=== PATIENT | female | born 1940 | race Caucasian/White ===

== ENCOUNTER 2020-08-03 14:09 | Outpatient (REF) | payer MEDICARE, SELFPAY ==
--- NOTE | 2020-08-03 14:00 | MR_ITS ---
EXAMINATION: MRI BRAIN WITHOUT CONTRAST CLINICAL INFORMATION: Cognitive change. COMPARISON: CT brain 05/23/2010. TECHNIQUE: Multisequential and multiprojectional images of MRI brain were obtained without contrast. FINDINGS: There is no restricted diffusion seen to suspect any acute infarction changes. No flow void or ferromagnetic artifact seen to suspect any acute or residual changes of old hemorrhage or hemosiderin. There are areas of hyperintensity along the deep periventricular white matter of both posterior parietal lobes and minimal in the frontal lobes, likely chronic small vessel ischemic changes. There is no atrophy or mass effect. The lateral ventricles are symmetrical but enlarged with mild prominence of cortical sulci. There is normal flow void signal seen in the major cerebral vasculature. There are well-aerated bilateral paranasal sinuses and mastoid sinuses. Visualized craniovertebral junction and craniocaudal axis including the posterior fossa structures are unremarkable. MR/MR head/brain wo con IMPRESSION: No acute intracranial process seen. Periventricular T2 hyperintensity, likely chronic small vessel ischemic changes with age-related cerebral volume loss.
== END 2020-08-03 14:10 | disposition home or self-care (01) ==
LOC: HO.MRI 14:09
PROVIDERS: PCP Nurse Practitioner Family; Visit Provider Internal Medicine
DX: R41.89 Other symptoms and signs involving cognitive functions and awareness (principal)
CPT/HCPCS: 70551

== ENCOUNTER 2022-08-05 11:15 | Inpatient (IN) | payer MEDICARE, SELFPAY ==
--- NOTE | ~2022-08-05 | CT_ITS ---
EXAMINATION: CT ABDOMEN AND PELVIS WITHOUT CONTRAST CLINICAL INFORMATION: Diarrhea. COMPARISON: None TECHNIQUE: Multidetector volumetric imaging was performed from the superior aspect of the liver through the pubic symphysis. Sagittal and coronal reformatted images were obtained on the technologist's workstation. This CT examination was performed using dose optimization techniques as appropriate, variously including the following: *Automated exposure control *Adjustment of mA and/or kV according to patient size (this includes techniques or standardized protocols for targeted exams where dose is matched to indication/reason for exam; i.e. extremities or head) *Use of iterative reconstruction technique DLP: 551 mGy-cm FINDINGS: LUNG BASES: Atherosclerotic calcification of left anterior descending coronary artery and of partially visualized thoracic aorta. No pericardial or pleural effusion. There are subpleural reticular opacities of mild fibrosis in the visualized bases. LIVER: The liver has normal size, shape, and attenuation. No evidence of liver mass. GALLBLADDER AND BILIARY TREE: Cholecystectomy. The central intrahepatic ducts are mildly dilated and common duct measures up to approximately 2 cm diameter. No stones are identified within the dilated duct. PANCREAS: Normal. No edema, pancreatic ductal dilatation or mass. SPLEEN: Normal. ADRENAL GLANDS: Normal. KIDNEYS AND URETERS: The kidneys have normal size and cortical thickness. No perinephric edema or fluid collection. No urolithiasis or hydroureteronephrosis. BLADDER: Urinary bladder is well distended and has normal wall thickness. BOWEL AND PERITONEUM: There appears to be a very small hiatal hernia of the stomach. Alternatively, the finding in question might represent mild gaseous distention of the esophageal vestibule. Small bowel is unremarkable. The appendix is normal. The wall of the colon appears to be minimally thickened. The mild haziness of some of the pericolonic fat elevates suspicion for presence of mild colitis. There are diverticula of the sigmoid colon. However, there is no evidence of any inflammation localized to a diverticulum. No abdominal free air or abscess. A trace amount of free fluid is present along paracolic gutters. ABDOMINAL WALL: Unremarkable. VASCULATURE: There is moderate atherosclerotic disease of the abdominal aorta without aneurysm. LYMPH NODES: No pathologic sized lymph nodes in the abdomen or pelvis. No inguinal lymphadenopathy. PELVIC VISCERA: Hysterectomy. No adnexal mass. Small amount of simple appearing free fluid is present in the pelvis. SKELETAL: Chondrocalcinosis of pubic symphysis, hips and spine. Rotatory levoscoliosis of the thoracolumbar spine. The disc degeneration of the lumbar spine is worst at L3-L4 and L5-S1. Minimal retrolisthesis at L2-L3, L3-L4 and L5-S1, and grade 1 anterolisthesis at L4-L5. L5 vertebral body hemangioma. No suspicious bone lesion. CT/CT abdomen pelvis wo IV con IMPRESSION: * There appears to be minimal wall thickening of the right and left colon and, in some areas of the abdomen, mild haziness of pericolonic fat is observed. These findings suggest likelihood of mild colitis. * Diverticula of the sigmoid colon without overt diverticulitis. * Small amount of free fluid is present in the abdomen/pelvis. No abscess or free air. * Cholecystectomy and dilated common bile duct. The chronicity of the common duct dilatation is uncertain given absence of comparison imaging exams. Consider correlation with bilirubin levels and liver function tests. * Mild interstitial fibrosis in the periphery of the visualized lung bases.
[2022-08-05 11:29] VITALS: BP 123/59; PULSE 86; RESP 18; TEMP 36.6; O2SAT 97; BMI 27.4
--- NOTE | 2022-08-05 11:47 | ED.WEAKNESS ---
HPI - Weakness General Chief complaint: Weakness Stated complaint: WEAKNESS DIARRHEA Time Seen by Provider: 08/05/22 11:33 Source: patient and EMS Mode of arrival: EMS Limitations: no limitations History of Present Illness HPI Narrative: 82-year-old female came in for evaluation of diarrhea. Patient overall is a poor historian and history was obtained from EMS who obtained the history from the caregiver at home, patient has been having diarrhea for a week with generalized weakness and decrease activity. Related Data Home Medications Medication Instructions Recorded Confirmed amlodipine 5 mg tablet 1 tab PO DAILY 08/05/22 08/05/22 bupropion HCl 100 mg tablet,12 hr 1 tab PO QAM 08/05/22 08/05/22 sustained-release cholecalciferol (vitamin D3) 25 25 mcg PO DAILY 08/05/22 08/05/22 mcg (1,000 unit) capsule (Vitamin D3) lisinopril 10 mg tablet 1 tab PO DAILY 08/05/22 08/05/22 pravastatin 10 mg tablet 1 tab PO BEDTIME 08/05/22 08/05/22 quetiapine 25 mg tablet 1 tab PO BID 08/05/22 08/05/22 sertraline 100 mg tablet 175 mg PO DAILY 08/05/22 08/05/22 trospium 20 mg tablet 1 tab PO BID 08/05/22 08/05/22 Allergies Allergy/AdvReac Type Severity Reaction Status Date / Time amoxicillin [AMOXICILLIN] Allergy Unknown UNKNOWN Unverified 06/22/20 15:02 shellfish derived AdvReac Unknown PT JUST Unverified 06/22/20 15:02 [SHELLFISH DERIVED] AVOIDS SHELLFISH Review of Systems Review of Systems: All other systems are reviewed and are negative Constitutional: Reports as per HPI and Reports no additional constitutional complaints Eyes: Reports as per HPI and Reports no additional eye complaints Reports system reviewed and no additional complaints, except as documented Cardiovascular: Reports as per HPI and Reports no additional cardiovascular complaints Respiratory: Reports as per HPI and Reports no additional respiratory complaints Gastrointestinal: Reports as per HPI and Reports no additional gastrointestinal complaints Genitourinary: Reports no additional female genitourinary complaints Musculoskeletal: Reports no additional musculoskeletal complaints Skin/Breast: Reports system reviewed and no additional complaints, except as docu Psychiatric: Reports no additional psychiatric complaints Endocrine: Reports no additional endocrine complaints Hematologic/Lymphatic: Reports no additional hematologic/lymphatic complaints Allergic/Immunologic: Reports no additional allergic/immunologic complaints Reports system reviewed and no additional complaints, except as documented and Reports Abnormal speech present [facility] [place] Social History Social History Advance Directives: Yes Advance Directives on File: Yes Advance Directives Date on File: 08/05/22 Physical Exam Vital Signs: Vital Signs: Last Vital Signs Temp 97.9 F 08/05/22 11:29 Pulse 86 08/05/22 11:29 Resp 18 08/05/22 11:29 BP 123/59 L 08/05/22 11:29 Pulse Ox 97 08/05/22 11:29 O2 Del Method 08/05/22 11:29 BMI result Body Mass Index 27.4 Vital signs have been reviewed as appeared to be correct. Blood pressure normal. Heart rate normal. Respiration rate normal. Temperature normal. Oxygen saturation normal. Appearance: Alert. Oriented X3. No acute distress. Head: Normal external exam. Normocephalic. Atraumatic. No Kumari signs noted. No raccoon eyes noted Eyes: PERRLA. EOMI. Conjunctiva and sclera normal. Eyelids normal. ENT: TM's Normal. Pharynx normal. Uvula midline. Moist mucous membranes. No trismus noted. No drooling noted. No muffled voice noted. Neck: Normal inspection. Neck supple. FROM. No adenopathy. Thyroid Normal. No meningeal signs. No neck mass noted. CVS: Normal heart rate and rhythm. Heart sound normal. No murmurs noted. Pulses normal throughout. Respiratory: No respiratory distress. Painless inspiration. Breath sounds normal. No wheezes/rales/rhonchi noted. Chest nontender. No accessory muscle usage noted or decreased air movement noted. Abdomen: Soft and nontender. Bowel sounds normal in all 4 quadrants. No distention noted. No organomegaly noted. No visible injury noted. Back: No CVA tenderness. Full range of motion noted. Skin: Skin warm and dry. Normal skin color. Normal skin turgor. No rashes/lesions/lacerations noted. Extremities: No lower extremity edema. Extremities exhibit normal range of motion. Extremities nontender. Neuro: Oriented X 3. Cranial nerve exam: II-XII are grossly intact No motor deficit. No sensory deficit. Reflexes normal. Course Reevaluation(s) Reevaluation #1: More history was obtained from the caregiver (Aurora Hernandez) patient is demented and poor historian at baseline patient had a history of multiple UTI in the past few months received multiple antibiotic courses, patient has been declining and deconditioning over the past few months, patient lost close to 30 lb over 9 months unintentionally, patient had multiple falls over the past 3 months, patient lives home mostly by herself get few hours help from a caregiver Friday - Friday, sons and daughter come visit her few hours a week. Time: 12:11 Reevaluation #2: 82-year-old female with nonstop diarrhea for 1 week will treat empirically for C diff with p.o. vancomycin until stool sample is available for testing. Hypokalemia was replaced p.o. and IV in the ED. Admit for hydration. Time: 13:44 MDM - Weakness Lab Data Attestation: I reviewed the patient's lab results. Result diagrams: 08/05/22 12:16 08/05/22 12:16 Labs: Lab Results 08/05/22 08/05/22 08/05/22 Range/Units 12:16 12:16 12:16 WBC 29.8 H (4.8-10.8) X10*3/uL RBC 3.75 L (4.20-5.50) X10*6/uL Hgb 12.1 (12.0-16.0) g/dl Hct 34.8 L (37.0-47.0) % MCV 92.8 (80.0-98.0) fL MCH 32.3 (27.0-33.0) pg MCHC 34.8 (31.0-35.0) g/dl RDW 12.9 (11.0-16.0) % Plt Count 283 (160-400) X10*3/uL MPV 9.4 (9.4-12.3) fL Immature Gran % (Auto) 0.9 H (0.0-0.4) % Neut % (Auto) 89.5 H (45-73) % Lymph % (Auto) 3.7 L (20-40) % Brantley % (Auto) 5.5 (2-11) % Eos % (Auto) 0.1 (0-4) % Baso % (Auto) 0.3 (0-2) % Lymph # (Auto) 1.1 L (1.2-4.9) X10*3/uL Brantley # (Auto) 1.7 H (0.1-1.2) X10*3/uL Eos # (Auto) 0.0 (0.0-0.4) X10*3/uL Baso # (Auto) 0.1 (0.0-0.2) X10*3/uL Abs Immat Gran (auto) 0.28 H (0.00-0.03) X10*3/uL Absolute Neuts (auto) 26.6 H (2.0-8.3) x10*3/uL Absolute Nucleated RBC 0.000 (0.0-0.012) X10*3/uL Nucleated RBC % (auto) 0.0 (0.0-0.2) /100WBC Smear Tech's Comments VERIFIED Sodium 138 (135-145) mmol/L Potassium 2.9 L (3.3-5.1) mmol/L Chloride 97 (96-108) mmol/L Carbon Dioxide 23 (22-29) mmol/L Anion Gap 21 H (12-20) BUN 25 H (9-16) mg/dL Creatinine 0.78 (0.5-1.4) mg/dL Estim Creat Clear Calc 57.3 Estimated GFR > 60 Random Glucose 124 H (60-115) mg/dL Lactic Acid 0.7 (0.5-2.0) mmol/L Calcium 8.8 (8.4-10.2) mg/dL Total Bilirubin 0.9 (0.0-1.0) mg/dL Direct Bilirubin 0.5 (0.0-0.5) mg/dL AST 19 (5-31) U/L ALT 12 (0-31) U/L Alkaline Phosphatase 64 (39-117) U/L Troponin I High Sens (<3.5-17.0) ng/L B-Natriuretic Peptide (<100) pg/mL Total Protein 5.8 L (6.5-8.0) g/dL Albumin 3.4 L (3.5-5.0) g/dL Lipase 6 L (8-78) U/L COVID-19 (SHIRA) (Negative) COVID-19 Clin Com 08/05/22 08/05/22 Range/Units 12:16 12:16 WBC (4.8-10.8) X10*3/uL RBC (4.20-5.50) X10*6/uL Hgb (12.0-16.0) g/dl Hct (37.0-47.0) % MCV (80.0-98.0) fL MCH (27.0-33.0) pg MCHC (31.0-35.0) g/dl RDW (11.0-16.0) % Plt Count (160-400) X10*3/uL MPV (9.4-12.3) fL Immature Gran % (Auto) (0.0-0.4) % Neut % (Auto) (45-73) % Lymph % (Auto) (20-40) % Brantley % (Auto) (2-11) % Eos % (Auto) (0-4) % Baso % (Auto) (0-2) % Lymph # (Auto) (1.2-4.9) X10*3/uL Brantley # (Auto) (0.1-1.2) X10*3/uL Eos # (Auto) (0.0-0.4) X10*3/uL Baso # (Auto) (0.0-0.2) X10*3/uL Abs Immat Gran (auto) (0.00-0.03) X10*3/uL Absolute Neuts (auto) (2.0-8.3) x10*3/uL Absolute Nucleated RBC (0.0-0.012) X10*3/uL Nucleated RBC % (auto) (0.0-0.2) /100WBC Smear Tech's Comments Sodium (135-145) mmol/L Potassium (3.3-5.1) mmol/L Chloride (96-108) mmol/L Carbon Dioxide (22-29) mmol/L Anion Gap (12-20) BUN (9-16) mg/dL Creatinine (0.5-1.4) mg/dL Estim Creat Clear Calc Estimated GFR Random Glucose (60-115) mg/dL Lactic Acid (0.5-2.0) mmol/L Calcium (8.4-10.2) mg/dL Total Bilirubin (0.0-1.0) mg/dL Direct Bilirubin (0.0-0.5) mg/dL AST (5-31) U/L ALT (0-31) U/L Alkaline Phosphatase (39-117) U/L Troponin I High Sens 6.8 (<3.5-17.0) ng/L B-Natriuretic Peptide 89 (<100) pg/mL Total Protein (6.5-8.0) g/dL Albumin (3.5-5.0) g/dL Lipase (8-78) U/L COVID-19 (SHIRA) Negative (Negative) COVID-19 Clin Com See Note Imaging Data CT scan - abdomen: Attestation: I personally reviewed and interpreted this imaging study as follows: Radiologist's impression: *? There appears to be minimal wall thickening of the right and left colon and, in some areas of the abdomen, mild haziness of pericolonic fat is observed. These findings suggest likelihood of mild colitis. *? Diverticula of the sigmoid colon without overt diverticulitis. *? Small amount of free fluid is present in the abdomen/pelvis. No abscess or free air. *? Cholecystectomy and dilated common bile duct. The chronicity of the common duct dilatation is uncertain given absence of comparison imaging exams. Consider correlation with bilirubin levels and liver function tests. *? Mild interstitial fibrosis in the periphery of the visualized lung bases. ? ? Discharge Plan Discharge Clinical Impression: Dehydration, Acute hypokalemia, C. difficile diarrhea, Failure to thrive, Leukocytosis Patient Disposition: Still a Patient Prescriptions: No Action sertraline 100 mg tablet 175 mg PO DAILY amlodipine 5 mg tablet 1 tab PO DAILY bupropion HCl 100 mg tablet sustained-release 12 hr 1 tab PO QAM trospium 20 mg tablet 1 tab PO BID quetiapine 25 mg tablet 1 tab PO BID pravastatin 10 mg tablet 1 tab PO BEDTIME lisinopril 10 mg tablet 1 tab PO DAILY cholecalciferol (vitamin D3) [Vitamin D3] 25 mcg (1,000 unit) Capsule 25 mcg PO DAILY
[2022-08-05 12:24] LABS: Basophils Absolute Auto 0.1 X10*3/uL (0.0-0.2); Basophils Percent Auto 0.3 % (0-2); Eosinophils Percent Auto 0.1 % (0-4); Hematocrit 34.8 % (37.0-47.0); Hemoglobin 12.1 g/dl (12.0-16.0); Imm Gran Abs Auto 0.28 X10*3/uL (0.00-0.03); Imm Gran Pct Auto 0.9 % (0.0-0.4); Lymphocytes Absolute Auto 1.1 X10*3/uL (1.2-4.9); Lymphocytes Percent Auto 3.7 % (20-40); MANUAL DIFF FLAG SCAN; Mean Corpuscular HGB Conc 34.8 g/dl (31.0-35.0); Mean Corpuscular Hemoglobin 32.3 pg (27.0-33.0); Mean Corpuscular Volume 92.8 fL (80.0-98.0); Mean Platelet Volume 9.4 fL (9.4-12.3); Monocytes Absolute Auto 1.7 X10*3/uL (0.1-1.2); Monocytes Percent Auto 5.5 % (2-11); Neutrophils Absolute Auto 26.6 x10*3/uL (2.0-8.3); Neutrophils Percent Auto 89.5 % (45-73); Platelet Count 283 X10*3/uL (160-400); Red Blood Count 3.75 X10*6/uL (4.20-5.50); Red Cell Distribution Width 12.9 % (11.0-16.0); SCAN SMEAR FLAG 1; White Blood Count 29.8 X10*3/uL (4.8-10.8)
[2022-08-05 12:37] LABS: COVID-19 Test Negative (Negative); IDNOW Serial# 16C4AD1C
[2022-08-05 12:46] LABS: Lactic Acid 0.7 mmol/L (0.5-2.0)
[2022-08-05] MEDS: 0.9 % Sodium Chloride 1,000 ML 999 ML IV (12:50)
[2022-08-05] MEDS: vancomycin HCL 125 MG CAPSULE PO ×2 (12:50→20:27)
[2022-08-05] MEDS: Loperamide HCl 2 MG CAPSULE PO (12:50)
[2022-08-05 12:53] LABS: Alanine Aminotransferase 12 U/L (0-31); Albumin Level 3.4 g/dL (3.5-5.0); Alkaline Phosphatase 64 U/L (39-117); Anion Gap 21 (12-20); Aspartate Amino Transferase 19 U/L (5-31); Bilirubin Direct 0.5 mg/dL (0.0-0.5); Bilirubin Total 0.9 mg/dL (0.0-1.0); Blood Urea Nitrogen 25 mg/dL (9-16); Calcium 8.8 mg/dL (8.4-10.2); Carbon Dioxide 23 mmol/L (22-29); Chloride 97 mmol/L (96-108); Creatinine Clr Calc Pharmacy 57.3; Estimated Glomerular Filt Rate > 60; Glucose Random 124 mg/dL (60-115); Lipase 6 U/L (8-78); Potassium 2.9 mmol/L (3.3-5.1); Sodium 138 mmol/L (135-145); Total Protein 5.8 g/dL (6.5-8.0)
[2022-08-05 12:58] LABS: B Type Natriuretic Peptide 89 pg/mL (<100); Troponin-I High Sensitivity 6.8 ng/L (<3.5-17.0)
[2022-08-05 13:06] LABS: SLIDE REVIEW VERIFIED
--- NOTE | 2022-08-05 14:16 | PHA.MEDREC ---
Pharmacy Consult ? Medication Reconciliation Pharmacy has completed the medication reconciliation. Patient's son had list of medications. Will bring in trospium if patient is staying. Kelli Caballero, BjornD
[2022-08-05] MEDS: Potassium Chloride Packet 20 MEQ PACKET 40 MEQ PO (14:43)
[2022-08-05] MEDS: Potassium Chloride/H20 10 MEQ/100 ML PIGGYBACK 100 MEQ IV (14:43)
--- NOTE | 2022-08-05 15:54 | P.HPHOSP_ITS ---
History of Present Illness Date of Service: 08/05/22 Attending physician on admission: Trent Vasquez Chief Complaint: Diarrhea/weakness 82-year-old female patient with past medical history significant for Alzheimer's dementia, hypertension, hyperlipidemia was brought into [facility] ac companied by patient's son due to symptoms of diarrhea of 1 week duration associated with generalized weakness, no nausea, no vomiting, mild mid abdominal discomfort and recurrent fall according to son patient has been treated more than 4 times UTI this year just finished course of antibiotic 1 week ago and developed loose stools multiple episodes in 1 day, and has been noticed to be shaky while ambulating with walker has had multiple falls at home, patient and sent denies fever chills, rigors, no head injuries, no headache, no dizziness patient lives alone at home with care provider few hours per day and son and daughter takes turned to check on her in the afternoon but since things were ge tting worse with gradual weight loss, weakness for therefore family decided to bring her to the hospital in the emergency room patient noted to have leukocytosis, hypokalemia stable vitals COVID test is negative CT abdomen and pelvis showed minimal wall thickening of the right and left Colon, mild haziness of the pericolonic fat, suggestive of mild colitis, diverticular of the sigmoid colon without diverticulitis small free fluid was noted in the abdomen/pelvis no abscess or free in noted, mild interstitial fibrosis noted in the periphery of the visualizing lung, patient is status post cholecystectomy, mild CBD dilatation notice but patient has normal LFTs patient is now being admitted to [facility] with diagnosis of colitis likely C diff /and also for generalized weakness recurrent falls. 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 no dizziness CVS no chest pain, no palpitation Respiratory no cough, no shortness of breath no urgency no frequency Skin no rash Yes all other systems are reviewed and are negative PMFSH Social History Advance Directives: Yes Advance Directives on File: Yes Advance Directives Date on File: 08/05/22 Meds Allergies Allergy/AdvReac Type Severity Reaction Status Date / Time amoxicillin [AMOXICILLIN] Allergy Unknown UNKNOWN Unverified 06/22/20 15:02 shellfish derived AdvReac Unknown PT JUST Unverified 06/22/20 15:02 [SHELLFISH DERIVED] AVOIDS SHELLFISH Active Medications: Current Medications Amlodipine Besylate (Amlodipine Besylate 5 Mg Tablet) 5 mg PO DAILY [facility]; Protocol Non-Formulary Medication (Bupropion Hcl) 1 tab PO QAM [facility] Non-Formulary Medication (Trospium) 1 tab PO BID [facility] Pharmacy Consult (Consult Rx Perform Med Rec) 1 each MISCELLANE ONCE PRN PRN Reason: Consult order Pravastatin Sodium (Pravastatin Sodium 10 Mg Tablet) 10 mg PO BEDTIME [facility] Quetiapine Fumarate (Quetiapine Fumarate 25 Mg Tablet) 25 mg PO BID [facility] Sertraline HCl (Sertraline Hcl 25 Mg Tablet) 175 mg PO DAILY [facility] Vitamin D (Cholecalciferol (Vitamin D3) 25 Mcg Tablet) 25 mcg PO DAILY [facility] Home Medications Medication Instructions Recorded Confirmed Last Taken Type amlodipine 5 mg tablet 1 tab PO DAILY 08/05/22 08/05/22 08/04/22 History bupropion HCl 100 mg tablet,12 hr 1 tab PO QAM 08/05/22 08/05/22 08/04/22 History sustained-release cholecalciferol (vitamin D3) 25 25 mcg PO DAILY 08/05/22 08/05/22 08/04/22 History mcg (1,000 unit) capsule (Vitamin D3) lisinopril 10 mg tablet 1 tab PO DAILY 08/05/22 08/05/22 08/04/22 History pravastatin 10 mg tablet 1 tab PO BEDTIME 08/05/22 08/05/22 08/04/22 History quetiapine 25 mg tablet 1 tab PO BID 08/05/22 08/05/22 08/04/22 History sertraline 100 mg tablet 175 mg PO DAILY 08/05/22 08/05/22 08/04/22 History trospium 20 mg tablet 1 tab PO BID 08/05/22 08/05/22 08/04/22 History Physical Exam Vital Signs and Narrative: Vital Signs: Last Vital Signs Temp 97.9 F 08/05/22 11:29 Pulse 86 08/05/22 11:29 Resp 18 08/05/22 11:29 BP 123/59 L 08/05/22 11:29 Pulse Ox 97 08/05/22 11:29 O2 Del Method 08/05/22 11:29 BMI result Body Mass Index 27.4 Const: Other: General awake alert to person, not aware of place, resting comfortably in no acute distress. Anicteric sclera Neck supple no JVD. CVS regular rate rhythm, Respiratory lungs clear to auscultation, no respiratory distress, no wheeze, no rhonchi. Gastrointestinal abdomen soft, nondistended, mild mid abdominal discomfort with deep palpation, bowel sounds audible, no guarding , no rigidity. Extremities no edema. Neuro nonfocal , moving all 4 extremity speech clear. Skin no rash Back no CVA tenderness Results Labs CBC and Chem 7: 08/05/22 12:16 08/05/22 12:16 Labs: Laboratory Results - last 24 hr 08/05/22 08/05/22 08/05/22 12:16 12:16 12:16 MCV 92.8 MCH 32.3 MCHC 34.8 RDW 12.9 Plt Count 283 MPV 9.4 Immature Gran % (Auto) 0.9 H Neut % (Auto) 89.5 H Lymph % (Auto) 3.7 L Hawkins % (Auto) 5.5 Eos % (Auto) 0.1 Baso % (Auto) 0.3 Lymph # (Auto) 1.1 L Hawkins # (Auto) 1.7 H Eos # (Auto) 0.0 Baso # (Auto) 0.1 Abs Immat Gran (auto) 0.28 H Absolute Neuts (auto) 26.6 H Absolute Nucleated RBC 0.000 Nucleated RBC % (auto) 0.0 Smear Tech's Comments VERIFIED Anion Gap 21 H Estim Creat Clear Calc 57.3 Estimated GFR > 60 Random Glucose 124 H Lactic Acid 0.7 Calcium 8.8 Total Bilirubin 0.9 Direct Bilirubin 0.5 AST 19 ALT 12 Alkaline Phosphatase 64 Troponin I High Sens B-Natriuretic Peptide Total Protein 5.8 L Albumin 3.4 L Lipase 6 L COVID-19 ([facility]IRA) COVID-19 Clin Com 08/05/22 08/05/22 12:16 12:16 MCV MCH MCHC RDW Plt Count MPV Immature Gran % (Auto) Neut % (Auto) Lymph % (Auto) Hawkins % (Auto) Eos % (Auto) Baso % (Auto) Lymph # (Auto) Hawkins # (Auto) Eos # (Auto) Baso # (Auto) Abs Immat Gran (auto) Absolute Neuts (auto) Absolute Nucleated RBC Nucleated RBC % (auto) Smear Tech's Comments Anion Gap Estim Creat Clear Calc Estimated GFR Random Glucose Lactic Acid Calcium Total Bilirubin Direct Bilirubin AST ALT Alkaline Phosphatase Troponin I High Sens 6.8 B-Natriuretic Peptide 89 Total Protein Albumin Lipase COVID-19 (SHIRA) Negative COVID-19 Clin Com See Note Imaging Radiologist's Impressions: Impressions Abdomen/Pelvis CT 08/05/22 12:10 IMPRESSION: * There appears to be minimal wall thickening of the right and left colon and, in some areas of the abdomen, mild haziness of pericolonic fat is observed. These findings suggest likelihood of mild colitis. * Diverticula of the sigmoid colon without overt diverticulitis. * Small amount of free fluid is present in the abdomen/pelvis. No abscess or free air. * Cholecystectomy and dilated common bile duct. The chronicity of the common duct dilatation is uncertain given absence of comparison imaging exams. Consider correlation with bilirubin levels and liver function tests. * Mild interstitial fibrosis in the periphery of the visualized lung bases. Assessment and Plan (1) Acute hypokalemia: Status: Acute (2) C. difficile diarrhea: Status: Acute (3) Failure to thrive: Status: Acute (4) Leukocytosis: Status: Acute (5) Dehydration: Status: Acute Plan 82-year-old female patient with past medical history of Alzheimer's dementia, hypertension, hyperlipidemia brought into [facility] due to diarrhea, generalized weakness and recurrent falls diagnosed with hypokalemia leukocytosis and mild colitis on CT abdomen and positive urinalysis. Acute Diarrhea Significant Leukocytosis/CT abdomen suggestive of mild colitis likely has C diff colitis with recent use of antibiotics Follow C diff toxin continue by mouth vancomycin Will place on caffeine free/lactose-free low fiber diet Follow clinical course Generalized weakness/recurrent falls/failure to thrive Likely due to diarrhea/recurrent uti Patient ambulates at home with wheeled walker will obtain PT eval Hypokalemia likely due to diarrhea will replete and follow BMP Positive urinalysis will check urine cultures at present asymptomatic recently finished course of antibiotics question colonization Hypertension continue Norvasc hold lisinopril follow blood pressure closely Alzheimer's dementia continue home medications no behavioral issues noted on admission DVT prophylaxis with subQ Lovenox Code status DNR DNI as per patient's son Raymond Harris who is healthcare proxy In my clinical judgment patient will need 2 night inpatient hospitalization due to acute C diff colitis with profuse diarrhea requiring antibiotics IV fluids, need to follow up on blood and urine cultures for Quality Stroke Does the patient have a stroke diagnosis?: No VTE Prior VTE?: No VTE Risk Level:: Medical - moderate - high VTE Device Contraindication: Treatment Not Indicated VTE Drug Contraindication: N/A - Med Ordered
[2022-08-05] MEDS: KCl 20 mEq in 5 % Dex/Lact Rin 20 MEQ/1,000 ML IV.SOLN 80 MEQ IVCONT (17:53)
[2022-08-05 21:07] VITALS: BP 142/74; PULSE 86; RESP 16; TEMP 36.9; O2SAT 98
--- NOTE | 2022-08-05 21:08 | PC.NURSE ---
this pct assumed care of pt at 2100 ,pt got ,over into hospital bed ,vs taken bed alarm on fresh pitcher water given tissue box and small garbage bag on bedside table ,pt watching television pt daughter just leave .
[2022-08-05] MEDS: QUEtiapine Fumarate 25 MG TABLET PO (22:06)
[2022-08-05] MEDS: Pravastatin Sodium 10 MG TABLET PO (22:06)
[2022-08-05 23:43] VITALS: BP 129/58; PULSE 90; RESP 16; TEMP 36.3; O2SAT 97
--- NOTE | 2022-08-05 23:44 | PC.NURSE ---
pt was inc of urine ,aleyda care given bedding change.
[2022-08-06] MEDS: 0.9 % Sodium Chloride Flush 3 ML SYRINGE IVFLUSH ×3 (01:23→20:57)
--- NOTE | 2022-08-06 01:30 | PC.NURSE ---
assistant housekeeping manager Ambrose reported to nurse patient was restless and pulled out her IV to L lower forearm. No bleeding noted. Bed slightly saturated from running IV fluids and paused. Patient received aleyda care r/t patient was incontinent of urine and stool smear. New IV site started to L AC 20 G patent. Potassium IV fluids running. Pt resting comfortably in supine position.
[2022-08-06] MEDS: vancomycin HCL 125 MG CAPSULE PO ×4 (02:40→23:54)
[2022-08-06 04:32] VITALS: BP 123/41; PULSE 68; RESP 18; TEMP 37.4; O2SAT 97
[2022-08-06 04:56] LABS: Hemoglobin 10.5 g/dl (12.0-16.0); Mean Corpuscular Hemoglobin 32.9 pg (27.0-33.0); Mean Platelet Volume 9.2 fL (9.4-12.3); Platelet Count 242 X10*3/uL (160-400); Red Blood Count 3.19 X10*6/uL (4.20-5.50); Red Cell Distribution Width 12.8 % (11.0-16.0); White Blood Count 25.8 X10*3/uL (4.8-10.8)
[2022-08-06 05:16] LABS: Anion Gap 19 (12-20); Blood Urea Nitrogen 16 mg/dL (9-16); Calcium 8.2 mg/dL (8.4-10.2); Carbon Dioxide 22 mmol/L (22-29); Chloride 102 mmol/L (96-108); Creatinine Clr Calc Pharmacy 74.5; Estimated Glomerular Filt Rate > 60; Glucose Random 102 mg/dL (60-115); Potassium 3.1 mmol/L (3.3-5.1); Sodium 140 mmol/L (135-145)
--- NOTE | 2022-08-06 09:27 | MHC.CM.PN ---
Patient has a diagnosis of Alzheimer's Dementia; CM spoke with Daughter/Coreen @ [phone] and addressed IMM with her (original to be mailed certified letter to Coreen and a copy to be placed on the chart). STR is the family's goal and Patient will benefit from a PT eval([facility] is first choice snf).. CM has initiated and will follow for dc planning. Patient has received [employer]ur[employer] vax X 3 and her PCP is Dr. Deisy Gamboa.
[2022-08-06] MEDS: amLODIPine Besylate 5 MG TABLET PO (11:27)
[2022-08-06] MEDS: Cholecalciferol (Vitamin D3) 25 MCG TABLET PO (11:27)
[2022-08-06] MEDS: Sertraline HCL 50 MG TABLET 175 MG PO (11:27)
[2022-08-06] MEDS: QUEtiapine Fumarate 25 MG TABLET PO ×2 (11:28→20:56)
[2022-08-06] MEDS: buPROPion HCL 100 MG TABLET 50 MG PO ×2 (11:28→20:56)
[2022-08-06] MEDS: Potassium Chloride Packet 20 MEQ PACKET 40 MEQ PO (11:28)
--- NOTE | 2022-08-06 11:41 | P.PNIM_ITS ---
Subjective Subjective Date of Service: 08/06/22 Interval History: caregiver at bedside 4 recent falls at home; she is alone at night approx 2 wk of diarrhea had ABX for UTI in mid-Sep pt unable to give ROS due to dementia Physical Exam Vital Signs: Vital Signs: Last Vital Signs Temp 99.4 F 08/06/22 04:32 Pulse 68 08/06/22 04:32 Resp 18 08/06/22 04:32 BP 123/41 L 08/06/22 04:32 Pulse Ox 97 08/06/22 04:32 O2 Del Method 08/06/22 04:32 BMI result Body Mass Index 27.4 Gen: in no acute distress HEENT: sclera anicteric, moist mucus membranes Neck: supple Lungs: clear to auscultation bilaterally Heart: regular rate and rhythm, no murmurs Abd: soft, non-tender, non-distended Ext: no edema Skin: warm/well-perfused Neuro: alert, disoriented Psych: impaired insight Objective Data Active Medications Acetaminophen (Acetaminophen 325 Mg Tablet) 650 mg PO Q6H PRN PRN Reason: Pain, Mild (Pain Scale 1-3) Amlodipine Besylate (Amlodipine Besylate 5 Mg Tablet) 5 mg PO DAILY [facility]; Protocol Last Admin: 08/06/22 11:27 Dose: 5 mg Documented By: DREW Bupropion HCl (Bupropion Hcl 100 Mg Tablet) 50 mg PO BID [facility] Last Admin: 08/06/22 11:28 Dose: 50 mg Documented By: DREW Enoxaparin Sodium (Enoxaparin Sodium 40 Mg/0.4 Ml Syringe) 40 mg SUBCUT Q24H [facility] Last Admin: 08/05/22 17:54 Dose: Not Given Documented By: FLOWER Non-Admin Reason: Patient Refused Melatonin (Melatonin 3 Mg Tablet) 3 mg PO BEDTIME PRN PRN Reason: Insomnia Non-Formulary Medication (Trospium) 1 tab PO BID [facility] Ondansetron HCl (Ondansetron Hcl 4 Mg/2 Ml Vial) 4 mg IVPUSH Q8H PRN PRN Reason: Nausea and Vomiting Pharmacy Consult (Consult Rx Perform Med Rec) 1 each MISCELLANE ONCE PRN PRN Reason: Consult order Pravastatin Sodium (Pravastatin Sodium 10 Mg Tablet) 10 mg PO BEDTIME [facility] Last Admin: 08/05/22 22:06 Dose: 10 mg Documented By: BRETT Quetiapine Fumarate (Quetiapine Fumarate 25 Mg Tablet) 25 mg PO BID [facility] Last Admin: 08/06/22 11:28 Dose: 25 mg Documented By: DREW Sertraline HCl (Sertraline Hcl 50 Mg Tablet) 175 mg PO DAILY [facility] Last Admin: 08/06/22 11:27 Dose: 175 mg Documented By: DREW Sodium Chloride (0.9 % Sodium Chloride Flush 3 Ml Syringe) 3 ml IVFLUSH QSHIFT [facility] Last Admin: 08/06/22 09:13 Dose: Not Given Documented By: DREW Non-Admin Reason: See Note Vancomycin HCl (Vancomycin Hcl 125 Mg Capsule) 125 mg PO Q6H [facility] Last Admin: 08/06/22 11:27 Dose: 125 mg Documented By: DREW Vitamin D (Cholecalciferol (Vitamin D3) 25 Mcg Tablet) 25 mcg PO DAILY [facility] Last Admin: 08/06/22 11:27 Dose: 25 mcg Documented By: DREW Labs CBC & Chem 7: 08/06/22 04:42 08/06/22 04:42 Labs: Laboratory Results - last 24 hr 08/05/22 08/05/22 08/05/22 12:16 12:16 12:16 MCV 92.8 MCH 32.3 MCHC 34.8 RDW 12.9 Plt Count 283 MPV 9.4 Immature Gran % (Auto) 0.9 H Neut % (Auto) 89.5 H Lymph % (Auto) 3.7 L [place] % (Auto) 5.5 Eos % (Auto) 0.1 Baso % (Auto) 0.3 Lymph # (Auto) 1.1 L [place] # (Auto) 1.7 H Eos # (Auto) 0.0 Baso # (Auto) 0.1 Abs Immat Gran (auto) 0.28 H Absolute Neuts (auto) 26.6 H Absolute Nucleated RBC 0.000 Nucleated RBC % (auto) 0.0 Smear Tech's Comments VERIFIED Anion Gap 21 H Estim Creat Clear Calc 57.3 Estimated GFR > 60 Random Glucose 124 H Lactic Acid 0.7 Calcium 8.8 Total Bilirubin 0.9 Direct Bilirubin 0.5 AST 19 ALT 12 Alkaline Phosphatase 64 Troponin I High Sens B-Natriuretic Peptide Total Protein 5.8 L Albumin 3.4 L Lipase 6 L COVID-19 ([facility]) COVID-19 Clin Com 08/05/22 08/05/22 08/06/22 12:16 12:16 04:42 MCV 94.0 MCH 32.9 MCHC 35.0 RDW 12.8 Plt Count 242 MPV 9.2 L Immature Gran % (Auto) Neut % (Auto) Lymph % (Auto) [place] % (Auto) Eos % (Auto) Baso % (Auto) Lymph # (Auto) [place] # (Auto) Eos # (Auto) Baso # (Auto) Abs Immat Gran (auto) Absolute Neuts (auto) Absolute Nucleated RBC 0.000 Nucleated RBC % (auto) 0.0 Smear Tech's Comments Anion Gap Estim Creat Clear Calc Estimated GFR Random Glucose Lactic Acid Calcium Total Bilirubin Direct Bilirubin AST ALT Alkaline Phosphatase Troponin I High Sens 6.8 B-Natriuretic Peptide 89 Total Protein Albumin Lipase COVID-19 (SHIRA) Negative COVID-19 Clin Com See Note 08/06/22 04:42 MCV MCH MCHC RDW Plt Count MPV Immature Gran % (Auto) Neut % (Auto) Lymph % (Auto) [place] % (Auto) Eos % (Auto) Baso % (Auto) Lymph # (Auto) [place] # (Auto) Eos # (Auto) Baso # (Auto) Abs Immat Gran (auto) Absolute Neuts (auto) Absolute Nucleated RBC Nucleated RBC % (auto) Smear Tech's Comments Anion Gap 19 Estim Creat Clear Calc 74.5 Estimated GFR > 60 Random Glucose 102 Lactic Acid Calcium 8.2 L D Total Bilirubin Direct Bilirubin AST ALT Alkaline Phosphatase Troponin I High Sens B-Natriuretic Peptide Total Protein Albumin Lipase COVID-19 ([facility]IRA) COVID-19 Clin Com Assessment and Plan (1) Acute hypokalemia: Status: Acute Plan d#2 82yo F with Alzheimer's dementia, HTN, HLD brought in with weakness, recurrent falls, and worsening diarrhea found to have hypokalemia, leukocytosis, and colitis # acute colitis - high suspicion for C.diff- on vanco d#2 and awaiting stool study # hypoK - replete, recheck BMP in AM # recurrent falls # FTT - PT eval # HTN - continue amlodipine # dementia # mood disorder - continue sertraline, bupropion, quetiapine # VTE ppx: LMWH In my clinical judgment, the patient requires continued hospitalization for the following reasons: electrolyte abnormality, leukocytosis, colitis Quality Stroke Does the patient have a stroke diagnosis?: No VTE Prior VTE?: No VTE Risk Level:: Medical - moderate - high VTE Device Contraindication: Treatment Not Indicated VTE Drug Contraindication: N/A - Med Ordered
--- NOTE | 2022-08-06 11:43 | PC.NURSE ---
patient woke to verbal stimulus, caregiver from home at bedside who stated pt takes meds whole with water, this nurse attempted to give medication and pt was unable to swallow the pills ultimately spitting it out- caregiver stated this was new. this nurse crushed meds and put them in applesauce pt was able to swallow but had a delayed swallow. Dr. Franco was notified who stated he would order a speech swallow eval.
[2022-08-06 12:13] VITALS: BP 147/72; PULSE 90; RESP 14; TEMP 36.2; O2SAT 97
[2022-08-06 13:03] LABS: Magnesium 1.2 mg/dL (1.6-2.6)
[2022-08-06 13:15] VITALS: BP 147/72; PULSE 90; O2SAT 97
--- NOTE | 2022-08-06 13:56 | PC.NURSE ---
Dr. Franco notified via tiger text for mag level
[2022-08-06] MEDS: Magnesium Sulfate/H2O 2 GM/50 ML PIGGYBACK IV (14:30)
--- NOTE | 2022-08-06 14:42 | PC.NURSE ---
speech at bedside performing swallow eval
--- NOTE | 2022-08-06 14:53 | PC.NURSE ---
Mag started without incidence, could not chart at bedside as computer not working at the time. started at 1430pm. on the DEC it is greyed out and cannot manually chart on this patient.
[2022-08-06 17:08] VITALS: BP 120/69; PULSE 88; RESP 18; TEMP 36.6; O2SAT 96
[2022-08-06] MEDS: Enoxaparin Sodium 40 MG/0.4 ML SYRINGE SUBCUT (17:44)
--- NOTE | 2022-08-06 19:01 | MHC.SL.SWA ---
Speech Pathologist Impression: Risk of Aspiration Due to: Reduced Cognition Dysphasia Diet Status: Liquid Consistency and Strategies for Safe Swallow: Liquid Intake Recommendation: Thin Liquid Intake Strategies: Small Sips Solid Food Consistency: Dietary Recommendations: Chopped/Advanced (NDD3) Additional Modifications to Solid Foods: Pt will need periodic supervision, but able to feed self. Assure that patient is alternating liquids and solids, periodic oral check for pocketing of solid foods. All food should be in precut, bitesize pieces. Oral Medication Intake: Crushed with Puree Please contact the pharmacy regarding appropriate crushable or liquid drug formulations that are available whenever modified delivery is recommended. Compensatory Strategies and Precautions to be Taken for Safe Swallow: Sitting Upright (90 deg) Liquids from Cup Small Bites and Sips Alternate Liquids/Solids Rate of Ingestion Change Oral Check Avoid Specific Foods Supervision While Eating and Drinking for Safe Swallow: Intermittent Supervision Foods to Avoid: Avoid hard or tough difficult to chew solids, crunchy foods. Swallowing Recommended Treatments: Compens. Strategy Educat. Recommendation for Speech: Inpatient Speech Therapy Comment: Patient presents with mild oral phase dysphagia, with prolonged, disorganized mastication of solids and episodic pocketing of solid food. Recommend DOWNGRADE Diet to Chopped Advanced (NDD3), continue with THIN liquids, pills CRUSHED in puree. Pt can independently feed self, but will need at least periodic supervision to assure that patient is alternating sips of liquid with bites of solid food, and that patient is not orally pocketing solids. Recommendations communicating in person to nursing, by secure text to OTILIO MCGOVERN. POEM WRITER to f/u on toleration of diet 1-2X. Frequency/Duration: 1-2X while inpatient for toleration of diet. Date Range for Service Req: Timeline to reassess: Student Success Advisor Clinican/Clinical Fellow: No Supervisory Statement: I have reviewed and agree with the student/clinical fellow's documentation: N/A Speech Language Pathologist: Amy Padilla M.A., CCC-POEM WRITER
[2022-08-06 19:25] VITALS: BP 124/56; PULSE 90; RESP 18; TEMP 37.2; O2SAT 98
[2022-08-06] MEDS: Melatonin 3 MG TABLET PO (20:56)
[2022-08-06] MEDS: Pravastatin Sodium 10 MG TABLET PO (20:56)
[2022-08-06 23:48] VITALS: BP 140/70; PULSE 93; RESP 18; TEMP 36.3; O2SAT 97
[2022-08-07] VITALS (7 sets, daily range): BP systolic 113–141; BP diastolic 56–73; PULSE 75–100; RESP 16–20; TEMP 36.1–37.1; O2SAT 95–99
[2022-08-07 03:21] LABS: CDiff Gene PCR POSITIVE (Negative)
[2022-08-07 04:00] LABS: CDiff Toxin Positive (Negative)
[2022-08-07 04:01] LABS: CDIFF Internal ctrl Dots and bkg OK (V)
[2022-08-07] MEDS: vancomycin HCL 125 MG CAPSULE PO ×4 (06:35→23:08)
[2022-08-07 07:22] LABS: Anion Gap 18 (12-20); Blood Urea Nitrogen 16 mg/dL (9-16); Calcium 8.5 mg/dL (8.4-10.2); Carbon Dioxide 22 mmol/L (22-29); Chloride 103 mmol/L (96-108); Creatinine Clr Calc Pharmacy 74.5; Estimated Glomerular Filt Rate > 60; Glucose Random 146 mg/dL (60-115); Magnesium 1.8 mg/dL (1.6-2.6); Potassium 3.4 mmol/L (3.3-5.1); Sodium 140 mmol/L (135-145)
[2022-08-07] MEDS: Sertraline HCL 50 MG TABLET 175 MG PO (08:56)
[2022-08-07] MEDS: buPROPion HCL 100 MG TABLET 50 MG PO ×2 (08:57→19:44)
[2022-08-07] MEDS: QUEtiapine Fumarate 25 MG TABLET PO ×2 (08:57→19:44)
[2022-08-07] MEDS: Cholecalciferol (Vitamin D3) 25 MCG TABLET PO (08:57)
[2022-08-07] MEDS: amLODIPine Besylate 5 MG TABLET PO (08:57)
[2022-08-07] MEDS: 0.9 % Sodium Chloride Flush 3 ML SYRINGE IVFLUSH ×3 (09:01→19:44)
--- NOTE | 2022-08-07 10:26 | MHC.SL.SWA ---
Speech Pathologist Impression: Oropharyngeal dysphagia Risk of Aspiration Due to: Reduced Cognition Dysphasia Diet Status: Downgrade liquids Liquid Consistency and Strategies for Safe Swallow: Liquid Intake Recommendation: [place] Thick Liquid Intake Strategies: Small Sips No Straws Solid Food Consistency: Dietary Recommendations: Chopped/Advanced (NDD3) Additional Modifications to Solid Foods: Recommend continue with CHOPPED/ADVANCED (NDD3) solids and DOWNGRADE to [place]CT[place] THICK liquids, pills CRUSHED in PUREE. Continue with aspiration precautions and total supervision. Pt may require assistance with set up of tray and throughout meal. SYSTEM CONSULTANT will continue to follow. Oral Medication Intake: Crushed with Puree Please contact the pharmacy regarding appropriate crushable or liquid drug formulations that are available whenever modified delivery is recommended. Compensatory Strategies and Precautions to be Taken for Safe Swallow: Sitting Upright (90 deg) No Straw Small Bites and Sips Alternate Liquids/Solids Rate of Ingestion Change Supervision While Eating and Drinking for Safe Swallow: Total Supervision (1:1) Foods to Avoid: Avoid hard or tough difficult to chew solids, crunchy foods. Swallowing Recommended Treatments: Compens. Strategy Educat. Recommendation for Speech: Inpatient Speech Therapy Warehouse Person Clinican/Clinical Fellow: Yes: Sofiya Pack Supervisory Statement: I have reviewed and agree with the student/clinical fellow's documentation: N/A Speech Language Pathologist: Chayito Rain M.A., CCC-SYSTEM CONSULTANT
--- NOTE | 2022-08-07 11:34 | HO.PM.IMPN ---
Subjective Subjective Date of Service: 08/07/22 Interval History: 3 episodes of diarrhea this morning eating; denies N/V no abd pain Review of Systems Review of Systems: Yes all other systems are reviewed and are negative Physical Exam Vital Signs: Vital Signs: Last Vital Signs Temp 97.0 F 08/07/22 11:26 Pulse 100 08/07/22 11:26 Resp 16 08/07/22 11:26 BP 113/56 L 08/07/22 11:26 Pulse Ox 97 08/07/22 11:26 O2 Del Method 08/07/22 11:26 BMI result Body Mass Index 27.4 Gen: in no acute distress HEENT: sclera anicteric, moist mucus membranes Neck: supple Lungs: clear to auscultation bilaterally Heart: regular rate and rhythm, no murmurs Abd: soft, non-tender, non-distended Ext: no edema Skin: warm/well-perfused Neuro: alert, disoriented Psych: impaired insight Objective Data Active Medications Acetaminophen (Acetaminophen 325 Mg Tablet) 650 mg PO Q6H PRN PRN Reason: Pain, Mild (Pain Scale 1-3) Amlodipine Besylate (Amlodipine Besylate 5 Mg Tablet) 5 mg PO DAILY [facility]; Protocol Last Admin: 08/07/22 08:57 Dose: 5 mg Documented By: EULOGIO Bupropion HCl (Bupropion Hcl 100 Mg Tablet) 50 mg PO BID [facility] Last Admin: 08/07/22 08:57 Dose: 50 mg Documented By: EULOGIO Enoxaparin Sodium (Enoxaparin Sodium 40 Mg/0.4 Ml Syringe) 40 mg SUBCUT Q24H [facility] Last Admin: 08/06/22 17:44 Dose: 40 mg Documented By: EULOGIO Melatonin (Melatonin 3 Mg Tablet) 3 mg PO BEDTIME PRN PRN Reason: Insomnia Last Admin: 08/06/22 20:56 Dose: 3 mg Documented By: CONCEPCION Non-Formulary Medication (Trospium) 1 tab PO BID [facility] Ondansetron HCl (Ondansetron Hcl 4 Mg/2 Ml Vial) 4 mg IVPUSH Q8H PRN PRN Reason: Nausea and Vomiting Pharmacy Consult (Consult Rx Perform Med Rec) 1 each MISCELLANE ONCE PRN PRN Reason: Consult order Pravastatin Sodium (Pravastatin Sodium 10 Mg Tablet) 10 mg PO BEDTIME [facility] Last Admin: 08/06/22 20:56 Dose: 10 mg Documented By: CONCEPCION Quetiapine Fumarate (Quetiapine Fumarate 25 Mg Tablet) 25 mg PO BID [facility] Last Admin: 08/07/22 08:57 Dose: 25 mg Documented By: EULOGIO Sertraline HCl (Sertraline Hcl 50 Mg Tablet) 175 mg PO DAILY [facility] Last Admin: 08/07/22 08:56 Dose: 175 mg Documented By: EULOGIO Sodium Chloride (0.9 % Sodium Chloride Flush 3 Ml Syringe) 3 ml IVFLUSH QSHIFT [facility] Last Admin: 08/07/22 09:01 Dose: 3 ml Documented By: EULOGIO Vancomycin HCl (Vancomycin Hcl 125 Mg Capsule) 125 mg PO Q6H [facility] Last Admin: 08/07/22 06:35 Dose: 125 mg Documented By: CONCEPCION Vitamin D (Cholecalciferol (Vitamin D3) 25 Mcg Tablet) 25 mcg PO DAILY [facility] Last Admin: 08/07/22 08:57 Dose: 25 mcg Documented By: EULOGIO Labs CBC & Chem 7: 08/06/22 04:42 08/07/22 05:57 Labs: Laboratory Results - last 24 hr 08/06/22 08/07/22 08/07/22 04:42 02:00 05:57 Anion Gap 18 Estim Creat Clear Calc 74.5 Estimated GFR > 60 Random Glucose 146 H Calcium 8.5 Magnesium 1.2 L* 1.8 C. difficile Tox B Gene POSITIVE A* C. difficile Toxin A&B Positive A* C. difficile Interpret SEE NOTE Microbiology Microbiology Results: Microbiology 08/05/22 12:16 Blood Culture - Preliminary Blood - Venous No growth after 24 hours. 08/05/22 12:16 Blood Culture - Preliminary Blood - Venous No growth after 24 hours. Assessment and Plan (1) Acute hypokalemia: Status: Acute Plan d#3 82yo F with Alzheimer's dementia, HTN, HLD brought in with weakness, recurrent falls, and worsening diarrhea found to have hypokalemia, leukocytosis, and colitis due to C. difficile infection # Clostridium difficile colitis - on vanco d#3 # hypoK # hypoMg - repleted, recheck BMP in AM # recurrent falls # FTT - PT eval: STR recommended # HTN - continue amlodipine # dementia # mood disorder - continue sertraline, bupropion, quetiapine # VTE ppx: LMWH In my clinical judgment, the patient requires continued hospitalization for the following reasons: electrolyte abnormality, leukocytosis, colitis, placement, diarrhea Quality Stroke Does the patient have a stroke diagnosis?: No VTE Prior VTE?: No VTE Risk Level:: Medical - moderate - high VTE Device Contraindication: Treatment Not Indicated VTE Drug Contraindication: N/A - Med Ordered
--- NOTE | 2022-08-07 13:51 | MHC.CM.PN ---
PLAN IS DC TOMORROW. [facility] IS FOLLOWING AND OFFERING A BED. WILL NEED HCP COPY
[2022-08-07] MEDS: Enoxaparin Sodium 40 MG/0.4 ML SYRINGE SUBCUT (16:00)
[2022-08-07] MEDS: Pravastatin Sodium 10 MG TABLET PO (19:44)
[2022-08-07] MEDS: Melatonin 3 MG TABLET PO (19:44)
[2022-08-08 02:51] VITALS: BP 116/60; PULSE 86; RESP 16; TEMP 36.6; O2SAT 99
[2022-08-08] MEDS: vancomycin HCL 125 MG CAPSULE PO ×4 (05:19→23:27)
[2022-08-08 06:47] LABS: Hematocrit 32.8 % (37.0-47.0); Hemoglobin 11.1 g/dl (12.0-16.0); Mean Corpuscular HGB Conc 33.8 g/dl (31.0-35.0); Mean Corpuscular Volume 94.5 fL (80.0-98.0); Mean Platelet Volume 10.1 fL (9.4-12.3); Platelet Count 217 X10*3/uL (160-400); Red Blood Count 3.47 X10*6/uL (4.20-5.50); Red Cell Distribution Width 13.1 % (11.0-16.0); White Blood Count 16.8 X10*3/uL (4.8-10.8)
[2022-08-08 07:10] LABS: Anion Gap 16 (12-20); Blood Urea Nitrogen 18 mg/dL (9-16); Calcium 8.2 mg/dL (8.4-10.2); Carbon Dioxide 22 mmol/L (22-29); Chloride 103 mmol/L (96-108); Creatinine Clr Calc Pharmacy 74.5; Estimated Glomerular Filt Rate > 60; Glucose Random 130 mg/dL (60-115); Magnesium 1.7 mg/dL (1.6-2.6); Potassium 3.1 mmol/L (3.3-5.1); Sodium 138 mmol/L (135-145)
[2022-08-08 07:39] VITALS: BP 135/64; PULSE 89; RESP 18; TEMP 36.1; O2SAT 93
[2022-08-08] MEDS: Potassium Chloride Packet 20 MEQ PACKET 40 MEQ PO (08:41)
[2022-08-08] MEDS: Cholecalciferol (Vitamin D3) 25 MCG TABLET PO (08:41)
[2022-08-08] MEDS: amLODIPine Besylate 5 MG TABLET PO (08:42)
[2022-08-08] MEDS: QUEtiapine Fumarate 25 MG TABLET PO ×2 (08:42→20:28)
[2022-08-08] MEDS: 0.9 % Sodium Chloride Flush 3 ML SYRINGE IVFLUSH ×3 (08:42→20:28)
[2022-08-08] MEDS: buPROPion HCL 100 MG TABLET 50 MG PO ×2 (08:42→20:27)
[2022-08-08] MEDS: Sertraline HCL 50 MG TABLET 175 MG PO (08:42)
--- NOTE | 2022-08-08 10:22 | P.PNIM_ITS ---
Subjective Subjective Date of Service: 08/08/22 Interval History: 4 episodes of diarrhea today no abd pain Review of Systems Review of Systems: Yes all other systems are reviewed and are negative Physical Exam Vital Signs: Vital Signs: Last Vital Signs Temp 97.0 F 08/08/22 07:39 Pulse 89 08/08/22 07:39 Resp 18 08/08/22 07:39 BP 135/64 08/08/22 07:39 Pulse Ox 93 08/08/22 07:39 O2 Del Method 08/08/22 07:39 BMI result Body Mass Index 27.4 Gen: in no acute distress HEENT: sclera anicteric, moist mucus membranes Neck: supple Lungs: clear to auscultation bilaterally Heart: regular rate and rhythm, no murmurs Abd: soft, non-tender, non-distended Ext: no edema Skin: warm/well-perfused Neuro: alert, disoriented Psych: impaired insight Objective Data Active Medications Acetaminophen (Acetaminophen 325 Mg Tablet) 650 mg PO Q6H PRN PRN Reason: Pain, Mild (Pain Scale 1-3) Amlodipine Besylate (Amlodipine Besylate 5 Mg Tablet) 5 mg PO DAILY [facility]; Protocol Last Admin: 08/08/22 08:42 Dose: 5 mg Documented By: EULOGIO Bupropion HCl (Bupropion Hcl 100 Mg Tablet) 50 mg PO BID [facility] Last Admin: 08/08/22 08:42 Dose: 50 mg Documented By: EULOGIO Enoxaparin Sodium (Enoxaparin Sodium 40 Mg/0.4 Ml Syringe) 40 mg SUBCUT Q24H [facility] Last Admin: 08/07/22 16:00 Dose: 40 mg Documented By: EULOGIO Melatonin (Melatonin 3 Mg Tablet) 3 mg PO BEDTIME PRN PRN Reason: Insomnia Last Admin: 08/07/22 19:44 Dose: 3 mg Documented By: GOVIND Non-Formulary Medication (Trospium) 1 tab PO BID [facility] Ondansetron HCl (Ondansetron Hcl 4 Mg/2 Ml Vial) 4 mg IVPUSH Q8H PRN PRN Reason: Nausea and Vomiting Pharmacy Consult (Consult Rx Perform Med Rec) 1 each MISCELLANE ONCE PRN PRN Reason: Consult order Pravastatin Sodium (Pravastatin Sodium 10 Mg Tablet) 10 mg PO BEDTIME [facility] Last Admin: 08/07/22 19:44 Dose: 10 mg Documented By: GOVIND Quetiapine Fumarate (Quetiapine Fumarate 25 Mg Tablet) 25 mg PO BID [facility] Last Admin: 08/08/22 08:42 Dose: 25 mg Documented By: EULOGIO Sertraline HCl (Sertraline Hcl 50 Mg Tablet) 175 mg PO DAILY [facility] Last Admin: 08/08/22 08:42 Dose: 175 mg Documented By: EULOGIO Sodium Chloride (0.9 % Sodium Chloride Flush 3 Ml Syringe) 3 ml IVFLUSH QSHIFT [facility] Last Admin: 08/08/22 08:42 Dose: 3 ml Documented By: EULOGIO Vancomycin HCl (Vancomycin Hcl 125 Mg Capsule) 125 mg PO Q6H [facility] Last Admin: 08/08/22 05:19 Dose: 125 mg Documented By: GOVIND Vitamin D (Cholecalciferol (Vitamin D3) 25 Mcg Tablet) 25 mcg PO DAILY [facility] Last Admin: 08/08/22 08:41 Dose: 25 mcg Documented By: EULOGIO Labs CBC & Chem 7: 08/08/22 05:55 08/08/22 05:55 Labs: Laboratory Results - last 24 hr 08/08/22 08/08/22 05:55 05:55 MCV 94.5 MCH 32.0 MCHC 33.8 RDW 13.1 Plt Count 217 MPV 10.1 Absolute Nucleated RBC 0.000 Nucleated RBC % (auto) 0.0 Anion Gap 16 Estim Creat Clear Calc 74.5 Estimated GFR > 60 Random Glucose 130 H Calcium 8.2 L Magnesium 1.7 Microbiology Microbiology Results: Microbiology 08/05/22 12:16 Blood Culture - Preliminary Blood - Venous No growth after 48 hours. 08/05/22 12:16 Blood Culture - Preliminary Blood - Venous No growth after 48 hours. Assessment and Plan (1) Acute hypokalemia: Status: Acute Plan d#3 82yo F with Alzheimer's dementia, HTN, HLD brought in with weakness, recurrent falls, and worsening diarrhea found to have hypokalemia, leukocytosis, and colitis due to C. difficile infection # Clostridium difficile colitis - on vanco d#4 # hypoK - replete, recheck BMP in AM # hypoMg - repleted # recurrent falls # FTT - PT eval: STR recommended # HTN - continue amlodipine # dementia # mood disorder - continue sertraline, bupropion, quetiapine # VTE ppx: LMWH In my clinical judgment, the patient requires continued hospitalization for the following reasons: electrolyte abnormality, leukocytosis, colitis, placement, diarrhea Quality Stroke Does the patient have a stroke diagnosis?: No VTE Prior VTE?: No VTE Risk Level:: Medical - moderate - high VTE Device Contraindication: Treatment Not Indicated VTE Drug Contraindication: N/A - Med Ordered
[2022-08-08 11:32] VITALS: BP 135/64; PULSE 89; O2SAT 93
[2022-08-08 11:36] VITALS: BP 118/59; PULSE 94; RESP 18; TEMP 36.1; O2SAT 96
--- NOTE | 2022-08-08 12:03 | MHC.CM.PN ---
PER MD ROUNDS, ONE MORE DAY HERE AND DC THURSDAY 08/09 TO [facility]. FACILITY MADE AWARE IN EXPANSE.
[2022-08-08] MEDS: Enoxaparin Sodium 40 MG/0.4 ML SYRINGE SUBCUT (15:16)
[2022-08-08 15:30] VITALS: BP 125/57; PULSE 82; RESP 15; TEMP 36.9; O2SAT 96
--- NOTE | 2022-08-08 17:21 | MHC.SL.SWA ---
Speech Pathologist Impression: Risk of Aspiration Due to: Reduced Cognition Dysphasia Diet Status: Recommend continue on current diet of Chopped/Advanced (NDD3) with NECTAR THICK liquids, pills crushed in puree. Liquid Consistency and Strategies for Safe Swallow: Liquid Intake Recommendation: [place] Thick Liquid Intake Strategies: Small Sips No Straws Solid Food Consistency: Dietary Recommendations: Chopped/Advanced (NDD3) Additional Modifications to Solid Foods: Patient requires assistance/supervision during meal. Oral Medication Intake: Crushed with Puree Please contact the pharmacy regarding appropriate crushable or liquid drug formulations that are available whenever modified delivery is recommended. Compensatory Strategies and Precautions to be Taken for Safe Swallow: Sitting Upright (90 deg) No Straw Small Bites and Sips Alternate Liquids/Solids Rate of Ingestion Change Supervision While Eating and Drinking for Safe Swallow: Total Supervision (1:1) Foods to Avoid: Avoid hard or tough difficult to chew solids, crunchy foods. Swallowing Recommended Treatments: Compens. Strategy Educat. Recommendation for Speech: Inpatient Speech Therapy Comment: Pt was having lunch with FACILITY MAINTENANCE TECHNICIAN assisting with meal when BODYBUILDER arrived. FACILITY MAINTENANCE TECHNICIAN reported that patient had done some pocketing of food during breakfast when assisted by home health aid who was visiting, and was taking an extended time to chew food she was giving for lunch. Patient noted to have pattern of repetitive disorganized chewing, collecting the bolus anteriorly in mouth, then resuming chewing. FACILITY MAINTENANCE TECHNICIAN was encouraged to give patient sip of liquid which then helped initiation of swallow and clearing of bolus. Patient had only one 1/2 cup of juice on lunch tray, BODYBUILDER retrieved additional thickened juice to have with lunch. FACILITY MAINTENANCE TECHNICIAN then alternated liquid with bites of food which helped to decrease the perseverative chewing noted, encouraging swallow and clearing bolus. Recommend continue on current diet of Chopped/Advanced (NDD3) with NECTAR THICK liquids, pills crushed in puree. Frequency/Duration: 1-2X while inpatient for toleration of diet. Date Range for Service Req: Timeline to reassess: [employer]in[employer] Clinican/Clinical Fellow: Yes: Sofiya Pack Supervisory Statement: I have reviewed and agree with the student/clinical fellow's documentation: N/A Speech Language Pathologist: Aym Padilla M.A., CCC-BODYBUILDER
[2022-08-08 19:38] VITALS: BP 115/72; PULSE 101; RESP 16; TEMP 36.6; O2SAT 97
[2022-08-08] MEDS: Pravastatin Sodium 10 MG TABLET PO (20:27)
[2022-08-09] VITALS: BP 133/64; PULSE 89; RESP 16; TEMP 36.4; O2SAT 97
[2022-08-09 05:57] LABS: Hematocrit 33.8 % (37.0-47.0); Hemoglobin 10.8 g/dl (12.0-16.0); Mean Corpuscular Hemoglobin 32.2 pg (27.0-33.0); Mean Corpuscular Volume 100.9 fL (80.0-98.0); Mean Platelet Volume 10.2 fL (9.4-12.3); PLT CLUMP 1; Red Blood Count 3.35 X10*6/uL (4.20-5.50); Red Cell Distribution Width 13.2 % (11.0-16.0)
[2022-08-09 06:05] LABS: White Blood Count 12.4 X10*3/uL (4.8-10.8)
[2022-08-09] MEDS: vancomycin HCL 125 MG CAPSULE PO ×3 (06:08→17:45)
[2022-08-09 06:31] LABS: Platelet Count 216 X10*3/uL (160-400)
[2022-08-09 06:36] LABS: Anion Gap 16 (12-20); Blood Urea Nitrogen 16 mg/dL (9-16); Calcium 8.1 mg/dL (8.4-10.2); Carbon Dioxide 22 mmol/L (22-29); Chloride 105 mmol/L (96-108); Creatinine Clr Calc Pharmacy 81.3; Estimated Glomerular Filt Rate > 60; Glucose Random 104 mg/dL (60-115); Potassium 3.3 mmol/L (3.3-5.1); Sodium 140 mmol/L (135-145)
[2022-08-09 07:35] VITALS: BP 134/65; PULSE 92; RESP 18; TEMP 36.4; O2SAT 94
[2022-08-09] MEDS: amLODIPine Besylate 5 MG TABLET PO (08:25)
[2022-08-09] MEDS: buPROPion HCL 100 MG TABLET 50 MG PO ×2 (08:25→19:43)
[2022-08-09] MEDS: QUEtiapine Fumarate 25 MG TABLET PO ×2 (08:25→19:43)
[2022-08-09] MEDS: Sertraline HCL 50 MG TABLET 175 MG PO (08:26)
[2022-08-09] MEDS: Cholecalciferol (Vitamin D3) 25 MCG TABLET PO (08:26)
[2022-08-09] MEDS: 0.9 % Sodium Chloride Flush 3 ML SYRINGE IVFLUSH ×3 (08:30→19:46)
[2022-08-09 09:21] VITALS: BP 134/65; PULSE 92; O2SAT 94
--- NOTE | 2022-08-09 09:37 | HO.PM.IMPN ---
Subjective Subjective Date of Service: 08/09/22 Interval History: f/u on diarrehea d/t c diff continues to have profuse foul smelling diarrhea Review of Systems no fever +diarrhea Physical Exam Vital Signs: Vital Signs: Last Vital Signs Temp 97.6 F 08/09/22 07:35 Pulse 92 08/09/22 09:21 Resp 18 08/09/22 07:35 BP 134/65 08/09/22 09:21 Pulse Ox 94 08/09/22 09:21 O2 Del Method 08/09/22 07:35 BMI result Body Mass Index 27.4 Const: Other: General awake alert to person, not aware of place, resting comfortably in no acute distress. Anicteric sclera Neck supple no JVD. CVS regular rate rhythm, Respiratory lungs clear to auscultation, no respiratory distress, no wheeze, no rhonchi. Gastrointestinal abdomen soft, nondistended, mild mid abdominal discomfort with deep palpation, bowel sounds audible, no guarding , no rigidity. Extremities no edema. Neuro nonfocal , moving all 4 extremity speech clear. Skin no rash Back no CVA tenderness Objective Data Active Medications Acetaminophen (Acetaminophen 325 Mg Tablet) 650 mg PO Q6H PRN PRN Reason: Pain, Mild (Pain Scale 1-3) Amlodipine Besylate (Amlodipine Besylate 5 Mg Tablet) 5 mg PO DAILY [facility]; Protocol Last Admin: 08/09/22 08:25 Dose: 5 mg Documented By: SUNITA Bupropion HCl (Bupropion Hcl 100 Mg Tablet) 50 mg PO BID [facility] Last Admin: 08/09/22 08:25 Dose: 50 mg Documented By: SUNITA Enoxaparin Sodium (Enoxaparin Sodium 40 Mg/0.4 Ml Syringe) 40 mg SUBCUT Q24H [facility] Last Admin: 08/08/22 15:16 Dose: 40 mg Documented By: EULOGIO Melatonin (Melatonin 3 Mg Tablet) 3 mg PO BEDTIME PRN PRN Reason: Insomnia Last Admin: 08/07/22 19:44 Dose: 3 mg Documented By: GOVIND Non-Formulary Medication (Trospium) 1 tab PO BID [facility] Ondansetron HCl (Ondansetron Hcl 4 Mg/2 Ml Vial) 4 mg IVPUSH Q8H PRN PRN Reason: Nausea and Vomiting Pharmacy Consult (Consult Rx Perform Med Rec) 1 each MISCELLANE ONCE PRN PRN Reason: Consult order Pravastatin Sodium (Pravastatin Sodium 10 Mg Tablet) 10 mg PO BEDTIME [facility] Last Admin: 08/08/22 20:27 Dose: 10 mg Documented By: JOSE ANGEL Quetiapine Fumarate (Quetiapine Fumarate 25 Mg Tablet) 25 mg PO BID [facility] Last Admin: 08/09/22 08:25 Dose: 25 mg Documented By: SUNITA Sertraline HCl (Sertraline Hcl 50 Mg Tablet) 175 mg PO DAILY [facility] Last Admin: 08/09/22 08:26 Dose: 175 mg Documented By: SUNITA Sodium Chloride (0.9 % Sodium Chloride Flush 3 Ml Syringe) 3 ml IVFLUSH QSHIFT [facility] Last Admin: 08/09/22 08:30 Dose: 3 ml Documented By: SUNITA Vancomycin HCl (Vancomycin Hcl 125 Mg Capsule) 125 mg PO Q6H [facility] Last Admin: 08/09/22 06:08 Dose: 125 mg Documented By: JOSE ANGEL Vitamin D (Cholecalciferol (Vitamin D3) 25 Mcg Tablet) 25 mcg PO DAILY [facility] Last Admin: 08/09/22 08:26 Dose: 25 mcg Documented By: SUNITA Labs CBC & Chem 7: 08/09/22 05:22 08/09/22 05:22 Labs: Laboratory Results - last 24 hr 08/09/22 08/09/22 05:22 05:22 MCV 100.9 H D MCH 32.2 MCHC 32.0 RDW 13.2 Plt Count 216 MPV 10.2 Absolute Nucleated RBC 0.000 Nucleated RBC % (auto) 0.0 Anion Gap 16 Estim Creat Clear Calc 81.3 Estimated GFR > 60 Random Glucose 104 Calcium 8.1 L Assessment and Plan (1) C. difficile diarrhea: Status: Acute (2) Dehydration: Status: Acute Plan d#4 82yo F with Alzheimer's dementia, HTN, HLD brought in with weakness, recurrent falls, and worsening diarrhea found to have hypokalemia, leukocytosis, and colitis due to C. difficile infection # Clostridium difficile colitis - on vanco d#5, persistent diarrhea # hypoK d/t diarrhea - repleted and corrected # hypoMg - repleted and corrected # recurrent falls # FTT - PT eval: STR recommended # HTN - continue amlodipine # dementia # mood disorder - continue sertraline, bupropion, quetiapine # VTE ppx: LMWH In my clinical judgment, the patient requires continued hospitalization for the following reasons: electrolyte abnormality, leukocytosis, colitis, placement, diarrhea and prone to dehydration Quality Stroke Does the patient have a stroke diagnosis?: No VTE Prior VTE?: No VTE Risk Level:: Medical - moderate - high VTE Device Contraindication: Treatment Not Indicated VTE Drug Contraindication: N/A - Med Ordered
[2022-08-09 10:11] LABS: Magnesium 1.6 mg/dL (1.6-2.6)
[2022-08-09 11:47] VITALS: BP 106/57; PULSE 104; RESP 18; TEMP 36.1; O2SAT 98
[2022-08-09 15:56] VITALS: BP 122/57; PULSE 96; RESP 18; TEMP 36.8; O2SAT 98
--- NOTE | 2022-08-09 16:20 | MHC.CM.PN ---
Addendum entered by Bethanie Ibrahim 08/10/22 10:35: PT WILL BE GOING TO [facility] FOR STR, SHE IS NOT LTC Original Note: PT EXPECTED TO BE CLEARED FOR DC OVER THE WEEKEND DCP: RETURN TO LTC AT [facility] IN [place] VIA BLS
--- NOTE | 2022-08-09 16:45 | MHC.SL.SWA ---
Addendum entered and electronically signed by Chayito Rain MA, CCC-[employer] 08/09/22 17:09: D.S. Original Note: Risk of Aspiration Due to: Reduced Cognition Dysphasia Diet Status: Recommend UPGRADE to thin liquids and continue with CHOPPED/ADVANCED solids (NDD3). Pills to be crushed or whole in puree. Recommend patient continue with [employer] services at next level of care. Liquid Consistency and Strategies for Safe Swallow: Liquid Intake Recommendation: Thin Liquid Intake Strategies: Small Sips Solid Food Consistency: Dietary Recommendations: Chopped/Advanced (NDD3) Additional Modifications to Solid Foods: Patient requires assistance/supervision during meal. Oral Medication Intake: Crushed with Puree Please contact the pharmacy regarding appropriate crushable or liquid drug formulations that are available whenever modified delivery is recommended. Compensatory Strategies and Precautions to be Taken for Safe Swallow: Sitting Upright (90 deg) Small Bites and Sips Alternate Liquids/Solids Rate of Ingestion Change Avoid Specific Foods Supervision While Eating and Drinking for Safe Swallow: Total Supervision (1:1) Foods to Avoid: Avoid hard or tough difficult to chew solids, crunchy foods. Swallowing Recommended Treatments: Compens. Strategy Educat. Recommendation for Speech: Inpatient Speech Therapy Checked in w/ RN upon arrival. RN reports pt has been taking most medications crushed in puree with the exception of one taken whole in puree. RN reports pt tolerating pills both ways. Pt seen for bedside dysphagia tx this morning. Home health aide present at bedside doing exercises w/ pt upon [employer] arrival. Pt tolerated ice chips and 1 cup of water via controlled independent cup sip with no overt clinical s/s of aspiration. Pt presented w/ wet vocal quality 1X, was cued to swallow again. Pt did not present w/ wet vocal quality in all other sips of thin liquid. Pt was then given bite size pieces of hamilton cracker dipped in applesauce. Pt observed to cough with some bites of crackers that were more hard and dry. Pt given additional bites of hamilton cracker coated in applesauce. Pt did not present with s/s of aspiration. Note moderately prolonged mastication. No abnormal chewing patterns observed. Mild oral residue on tongue and bottom dentition. Lingual residue cleared with sips of water. Aide reports pt normally rinses mouth after eating meals. Pt noted to hold bolus for short time (<5 seconds) with thin liquids and solids. Pt tolerated full cup of thin liquids via straw with no overt clinical s/s of aspiration. Pt not observed to hold bolus w/ straw. No change in vocal quality. [employer] talked with aide about monitoring for s/s of aspiration. Aide reports pt was previously taking several pills whole at one time w/ liquid at home. Recommended pt take pills one at a time. Recommend pt UPGRADE to THIN liquids. Continue with CHOPPED/ADVANCED (NDD3). Recommend pills whole or crushed in puree. Recommend supervision to assist with tray and monitor for s/s of aspiration. [employer] to continue to follow. Manager Social Work Clinican/Clinical Fellow: Yes: Carlee Giordano M.A., -[employer] Supervisory Statement: I have reviewed and agree with the student/clinical fellow's documentation: N/A Speech Language Pathologist: Amy Padilla M.A., [facility]-[employer]
[2022-08-09] MEDS: Enoxaparin Sodium 40 MG/0.4 ML SYRINGE SUBCUT (17:46)
[2022-08-09 19:03] VITALS: BP 129/61; PULSE 97; RESP 18; TEMP 36.2; O2SAT 96
[2022-08-09] MEDS: Pravastatin Sodium 10 MG TABLET PO (19:42)
[2022-08-10] VITALS (7 sets, daily range): BP systolic 125–150; BP diastolic 61–73; PULSE 72–109; RESP 16–18; TEMP 36.1–36.7; O2SAT 94–97
[2022-08-10] MEDS: vancomycin HCL 125 MG CAPSULE PO ×4 (01:10→17:13)
[2022-08-10] MEDS: buPROPion HCL 100 MG TABLET 50 MG PO ×2 (08:51→20:41)
[2022-08-10] MEDS: Cholecalciferol (Vitamin D3) 25 MCG TABLET PO (08:51)
[2022-08-10] MEDS: QUEtiapine Fumarate 25 MG TABLET PO ×2 (08:52→20:41)
[2022-08-10] MEDS: amLODIPine Besylate 5 MG TABLET PO (08:52)
[2022-08-10] MEDS: 0.9 % Sodium Chloride Flush 3 ML SYRINGE IVFLUSH ×2 (08:52→17:13)
--- NOTE | 2022-08-10 08:53 | HO.PM.IMPN ---
Subjective Subjective Date of Service: 08/10/22 Interval History: f/u on diarrehea d/t c diff No diarrhea overnight Review of Systems no fever nodiarrhea Physical Exam Vital Signs: Vital Signs: Last Vital Signs Temp 97 F 08/10/22 07:04 Pulse 84 08/10/22 07:04 Resp 18 08/10/22 07:04 BP 127/73 08/10/22 07:04 Pulse Ox 96 08/10/22 07:04 O2 Del Method 08/10/22 07:04 BMI result Body Mass Index 27.4 Const: Other: General awake alert to person, not aware of place, resting comfortably in no acute distress. Anicteric sclera Neck supple no JVD. CVS regular rate rhythm, Respiratory lungs clear to auscultation, no respiratory distress, no wheeze, no rhonchi. Gastrointestinal abdomen soft, nondistended, mild mid abdominal discomfort with deep palpation, bowel sounds audible, no guarding , no rigidity. Extremities no edema. Neuro nonfocal , moving all 4 extremity speech clear. Skin no rash Back no CVA tenderness Objective Data Active Medications Acetaminophen (Acetaminophen 325 Mg Tablet) 650 mg PO Q6H PRN PRN Reason: Pain, Mild (Pain Scale 1-3) Amlodipine Besylate (Amlodipine Besylate 5 Mg Tablet) 5 mg PO DAILY [facility]; Protocol Last Admin: 08/09/22 08:25 Dose: 5 mg Documented By: SUNITA Bupropion HCl (Bupropion Hcl 100 Mg Tablet) 50 mg PO BID [facility] Last Admin: 08/09/22 19:43 Dose: 50 mg Documented By: CHARY Enoxaparin Sodium (Enoxaparin Sodium 40 Mg/0.4 Ml Syringe) 40 mg SUBCUT Q24H [facility] Last Admin: 08/09/22 17:46 Dose: 40 mg Documented By: SUNITA Melatonin (Melatonin 3 Mg Tablet) 3 mg PO BEDTIME PRN PRN Reason: Insomnia Last Admin: 08/07/22 19:44 Dose: 3 mg Documented By: GOVIND Non-Formulary Medication (Trospium) 1 tab PO BID [facility] Ondansetron HCl (Ondansetron Hcl 4 Mg/2 Ml Vial) 4 mg IVPUSH Q8H PRN PRN Reason: Nausea and Vomiting Pharmacy Consult (Consult Rx Perform Med Rec) 1 each MISCELLANE ONCE PRN PRN Reason: Consult order Pravastatin Sodium (Pravastatin Sodium 10 Mg Tablet) 10 mg PO BEDTIME [facility] Last Admin: 08/09/22 19:42 Dose: 10 mg Documented By: CHARY Quetiapine Fumarate (Quetiapine Fumarate 25 Mg Tablet) 25 mg PO BID [facility] Last Admin: 08/09/22 19:43 Dose: 25 mg Documented By: CHARY Sertraline HCl (Sertraline Hcl 50 Mg Tablet) 175 mg PO DAILY [facility] Last Admin: 08/09/22 08:26 Dose: 175 mg Documented By: SUNITA Sodium Chloride (0.9 % Sodium Chloride Flush 3 Ml Syringe) 3 ml IVFLUSH QSHIFT [facility] Last Admin: 08/09/22 19:46 Dose: 3 ml Documented By: CHARY Vancomycin HCl (Vancomycin Hcl 125 Mg Capsule) 125 mg PO Q6H [facility] Last Admin: 08/10/22 05:45 Dose: 125 mg Documented By: CHARY Vitamin D (Cholecalciferol (Vitamin D3) 25 Mcg Tablet) 25 mcg PO DAILY [facility] Last Admin: 08/09/22 08:26 Dose: 25 mcg Documented By: SUNITA Labs CBC & Chem 7: 08/09/22 05:22 08/09/22 05:22 Labs: Laboratory Results - last 24 hr 08/09/22 05:22 Magnesium 1.6 Assessment and Plan (1) C. difficile diarrhea: Status: Acute (2) Dehydration: Status: Acute Plan d#4 82yo F with Alzheimer's dementia, HTN, HLD brought in with weakness, recurrent falls, and worsening diarrhea found to have hypokalemia, leukocytosis, and colitis due to C. difficile infection # Clostridium difficile colitis - on vanco d#6, persistent diarrhea # hypoK d/t diarrhea - repleted and corrected # hypoMg - repleted and corrected # recurrent falls # FTT - PT eval: STR recommended # HTN - continue amlodipine # dementia # mood disorder - continue sertraline, bupropion, quetiapine # VTE ppx: LMWH In my clinical judgment, the patient requires continued hospitalization for the following reasons: electrolyte abnormality, leukocytosis, colitis, placement, diarrhea and prone to dehydration To rehab if bed available Quality Stroke Does the patient have a stroke diagnosis?: No VTE Prior VTE?: No VTE Risk Level:: Medical - moderate - high VTE Device Contraindication: Treatment Not Indicated VTE Drug Contraindication: N/A - Med Ordered
--- NOTE | 2022-08-10 11:01 | MHC.CM.PN ---
Addendum entered by Bethanie Ibrahim 08/10/22 11:06: DC CANCELLED FOR TODAY SNF AND BLS INFORMED Original Note: PT CLEARED TO DC TODAY SHE WILL DC TO [facility] IN [place] FOR STR AT 1300 HOURS TRANSPORT ARRANGED VIA [facility]
[2022-08-10] MEDS: Sertraline HCL 50 MG TABLET 175 MG PO (11:25)
--- NOTE | 2022-08-10 13:32 | PC.NURSE ---
Pt had 4 liquid BM this shift. OOB to recliner. Denies pain.
[2022-08-10] MEDS: Enoxaparin Sodium 40 MG/0.4 ML SYRINGE SUBCUT (17:12)
[2022-08-10] MEDS: Pravastatin Sodium 10 MG TABLET PO (20:41)
[2022-08-11] MEDS: vancomycin HCL 125 MG CAPSULE PO ×3 (01:09→10:19)
[2022-08-11] MEDS: 0.9 % Sodium Chloride Flush 3 ML SYRINGE IVFLUSH ×2 (01:11→10:20)
[2022-08-11 03:38] VITALS: BP 150/72; PULSE 95; RESP 16; TEMP 36.2; O2SAT 94
[2022-08-11 07:00] VITALS: BP 142/74; PULSE 78; RESP 19; TEMP 36.4; O2SAT 97
--- NOTE | 2022-08-11 07:13 | P.DS_ITS ---
DS: Providers Provider Date of Service: 08/11/22 Date of admission: 08/05/22 15:49 Primary care physician: Deisy Holt NP DS: Diagnosis Discharge Diagnosis (1) C. difficile diarrhea: Status: Resolved (2) Dehydration: Status: Resolved DS: Summary Hospital Course Hospital Course: Chief Complaint: Diarrhea/weakness 82-year-old female patient with past medical history significant for Alzheimer's dementia, hypertension, hyperlipidemia was brought into [facility] accompanied by patient's son due to symptoms of diarrhea of 1 week duration associated with generalized weakness, no nausea, no vomiting, mild mid abdominal discomfort and recurrent fall according to son patient has been treated more than 4 times UTI this year just finished course of antibiotic 1 week ago and developed loose stools multiple episodes in 1 day, and has been noticed to be shaky while ambulating with walker has had multiple falls at home, patient and sent denies fever chills, rigors, no head injuries, no headache, no dizziness patient lives alone at home with care provider few hours per day and son and daughter takes turned to check on her in the afternoon but since things were getting worse with gradual weight loss, weakness for therefore family decided to bring her to the hospital in the emergency room patient noted to have leukocytosis, hypokalemia stable vitals COVID test is negative CT abdomen and pelvis showed minimal wall thickening of the right and left Colon, mild haziness of the pericolonic fat, suggestive of mild colitis, diverticular of the sigmoid colon without diverticulitis small free fluid was noted in the abdomen/pelvis no abscess or free in noted, mild interstitial fibrosis noted in the periphery of the visualizing lung, patient is status post cholecystectomy, mild CBD dilatation notice but patient has normal LFTs patient is now being admitted to [facility] with diagnosis of colitis likely C diff /and also for generalized weakness recurrent falls. Patient noted to have urinalysis positive for bacteria nitrates, patient denies urinary symptoms will obtain urine cultures question has chronic colonization with Hospital course: # Clostridium difficile colitis and diarrhea has been treated with PO Vanco for 7 days now and will treat for an additional 7 days, overall improved with minimal diarrhea, WBC was 29 on 08/05 and on 08/09 was 12 # hypoKalemia d/t diarrhea- repleted and corrected # hypoMagnesemia-- - repleted and corrected # Recurrent falls--seen by PT and recommends for short term rehab - PT eval: STR recommended # HTN - continue amlodipine # dementia # mood disorder - continue sertraline, bupropion, quetiapine Time Spent with Patient Time attestation: Total time spent providing and/or coordinating discharge services: Discharge coordination time: Greater than 30 minutes Quality: Safe Use of Opioids Does Pt have an Active Cancer Diagnosis on the Problem List?: No Quality: Stroke Does the patient have a stroke diagnosis?: No Physical Exam Vital Signs: Vital Signs: Last Vital Signs Temp 97.6 F 08/11/22 07:00 Pulse 78 08/11/22 07:00 Resp 19 08/11/22 07:00 BP 142/74 H 08/11/22 07:00 Pulse Ox 97 08/11/22 07:00 O2 Del Method 08/11/22 07:00 BMI result Body Mass Index 27.4 Discharge Plan Discharge Anticipated Discharge Date/Time: 08/10/22 10:56 Patient Disposition: Xfer SNF Discharge Diagnosis: C diff diarrhea, LADARIUS, hypokalemia Referrals: [facility] [Other] - 1 Week Deisy Holt DRIVER/[facility]CH[facility] [Primary Care Provider] - 1 Week Discharge Medications: New vancomycin 125 mg Capsule 250 mg PO Q6H 10 Days Qty: 80 0RF Continued sertraline 100 mg tablet 175 mg PO DAILY amlodipine 5 mg tablet 1 tab PO DAILY bupropion HCl 100 mg tablet sustained-release 12 hr 1 tab PO QAM trospium 20 mg tablet 1 tab PO BID quetiapine 25 mg tablet 1 tab PO BID pravastatin 10 mg tablet 1 tab PO BEDTIME lisinopril 10 mg tablet 1 tab PO DAILY cholecalciferol (vitamin D3) [Vitamin D3] 25 mcg (1,000 unit) Capsule 25 mcg PO DAILY Discharge Orders: Discharge Order (Routine); Ordered 08/11/22 Ordered By: Tiago Kinsey Diet: Advance to usual diet Activity on Discharge: As tolerated Stand Alone Forms: Patient Portal Discharge page Care Plan Goals: Full recovery from cdif, dehydration and renal failure Health Concerns: C-diff dehydration diarrhea hypOkalemia Plan of Treatment: Take Vancomycin as recommended and follow up with your Doctor in a week Assessment: as above Discharge Date/Time: 08/11/22 14:15
--- NOTE | 2022-08-11 07:22 | HO.PM.IMPN ---
Subjective Subjective Date of Service: 08/11/22 Interval History: f/u on diarrehea d/t c diff No diarrhea overnight Review of Systems no fever nodiarrhea Physical Exam Vital Signs: Vital Signs: Last Vital Signs Temp 97.6 F 08/11/22 07:00 Pulse 78 08/11/22 07:00 Resp 19 08/11/22 07:00 BP 142/74 H 08/11/22 07:00 Pulse Ox 97 08/11/22 07:00 O2 Del Method 08/11/22 07:00 BMI result Body Mass Index 27.4 Const: Other: General awake alert to person, not aware of place, resting comfortably in no acute distress. Anicteric sclera Neck supple no JVD. CVS regular rate rhythm, Respiratory lungs clear to auscultation, no respiratory distress, no wheeze, no rhonchi. Gastrointestinal abdomen soft, nondistended, mild mid abdominal discomfort with deep palpation, bowel sounds audible, no guarding , no rigidity. Extremities no edema. Neuro nonfocal , moving all 4 extremity speech clear. Skin no rash Back no CVA tenderness Objective Data Active Medications Acetaminophen (Acetaminophen 325 Mg Tablet) 650 mg PO Q6H PRN PRN Reason: Pain, Mild (Pain Scale 1-3) Amlodipine Besylate (Amlodipine Besylate 5 Mg Tablet) 5 mg PO DAILY [facility]; Protocol Last Admin: 08/10/22 08:52 Dose: 5 mg Documented By: SUNITA Bupropion HCl (Bupropion Hcl 100 Mg Tablet) 50 mg PO BID [facility] Last Admin: 08/10/22 20:41 Dose: 50 mg Documented By: CHARY Enoxaparin Sodium (Enoxaparin Sodium 40 Mg/0.4 Ml Syringe) 40 mg SUBCUT Q24H [facility] Last Admin: 08/10/22 17:12 Dose: 40 mg Documented By: SUNITA Melatonin (Melatonin 3 Mg Tablet) 3 mg PO BEDTIME PRN PRN Reason: Insomnia Last Admin: 08/07/22 19:44 Dose: 3 mg Documented By: GOVIND Non-Formulary Medication (Trospium) 1 tab PO BID [facility] Ondansetron HCl (Ondansetron Hcl 4 Mg/2 Ml Vial) 4 mg IVPUSH Q8H PRN PRN Reason: Nausea and Vomiting Pharmacy Consult (Consult Rx Perform Med Rec) 1 each MISCELLANE ONCE PRN PRN Reason: Consult order Pravastatin Sodium (Pravastatin Sodium 10 Mg Tablet) 10 mg PO BEDTIME [facility] Last Admin: 08/10/22 20:41 Dose: 10 mg Documented By: CHARY Quetiapine Fumarate (Quetiapine Fumarate 25 Mg Tablet) 25 mg PO BID [facility] Last Admin: 08/10/22 20:41 Dose: 25 mg Documented By: CHARY Sertraline HCl (Sertraline Hcl 50 Mg Tablet) 175 mg PO DAILY [facility] Last Admin: 08/10/22 11:25 Dose: 175 mg Documented By: SUNITA Sodium Chloride (0.9 % Sodium Chloride Flush 3 Ml Syringe) 3 ml IVFLUSH QSHIFT [facility] Last Admin: 08/11/22 01:11 EDT Dose: 3 ml Documented By: CHARY Vancomycin HCl (Vancomycin Hcl 125 Mg Capsule) 125 mg PO Q6H [facility] Last Admin: 08/11/22 05:22 Dose: 125 mg Documented By: CHARY Vitamin D (Cholecalciferol (Vitamin D3) 25 Mcg Tablet) 25 mcg PO DAILY [facility] Last Admin: 08/10/22 08:51 Dose: 25 mcg Documented By: SUNITA Labs CBC & Chem 7: 08/09/22 05:22 08/09/22 05:22 Microbiology Microbiology Results: Microbiology 08/05/22 12:16 Blood Culture - Final Blood - Venous No growth after 5 days. 08/05/22 12:16 Blood Culture - Final Blood - Venous No growth after 5 days. Assessment and Plan (1) C. difficile diarrhea: Status: Acute (2) Dehydration: Status: Acute Plan d#5 82yo F with Alzheimer's dementia, HTN, HLD brought in with weakness, recurrent falls, and worsening diarrhea found to have hypokalemia, leukocytosis, and colitis due to C. difficile infection # Clostridium difficile colitis and diarrhea has been treated with PO Vanco for 7 days now and will treat for an additional 7 days, overall improved with minimal diarrhea, WBC was 29 on 08/05 and on 08/09 was 12 # hypoKalemia d/t diarrhea- repleted and corrected # hypoMagnesemia-- - repleted and corrected # Recurrent falls--seen by PT and recommends for short term rehab - PT eval: STR recommended # HTN - continue amlodipine # dementia # mood disorder - continue sertraline, bupropion, quetiapine Discharge today In my clinical judgment, the patient requires continued hospitalization for the following reasons: electrolyte abnormality, leukocytosis, colitis, placement, diarrhea and prone to dehydration To rehab if bed available Quality Stroke Does the patient have a stroke diagnosis?: No VTE Prior VTE?: No VTE Risk Level:: Medical - moderate - high VTE Device Contraindication: Treatment Not Indicated VTE Drug Contraindication: N/A - Med Ordered
[2022-08-11 08:43] LABS: Anion Gap 14 (12-20); Blood Urea Nitrogen 9 mg/dL (9-16); Calcium 7.8 mg/dL (8.4-10.2); Carbon Dioxide 26 mmol/L (22-29); Chloride 103 mmol/L (96-108); Creatinine Clr Calc Pharmacy 82.7; Estimated Glomerular Filt Rate > 60; Glucose Random 94 mg/dL (60-115); Magnesium 1.6 mg/dL (1.6-2.6); Potassium 3.4 mmol/L (3.3-5.1); Sodium 140 mmol/L (135-145)
[2022-08-11] MEDS: buPROPion HCL 100 MG TABLET 50 MG PO (10:19)
[2022-08-11] MEDS: amLODIPine Besylate 5 MG TABLET PO (10:19)
[2022-08-11] MEDS: Sertraline HCL 50 MG TABLET 175 MG PO (10:20)
[2022-08-11] MEDS: Cholecalciferol (Vitamin D3) 25 MCG TABLET PO (10:20)
[2022-08-11] MEDS: QUEtiapine Fumarate 25 MG TABLET PO (10:20)
[2022-08-11 11:17] LABS: COVID-19 Test Negative (Negative)
--- NOTE | 2022-08-11 11:34 | MHC.CM.PN ---
PT CLEARED TO DC TODAY TO REGIN IN [place] FOR STR CM CALLED PTS [facility] HE WAS INFORMED PT WOULD DC LATER TODAY [facility] BLS TRANSPORT ARRANGED VIA [facility] FOR 1400 HOURS
== END 2022-08-11 14:15 | disposition skilled nursing facility (03) | DRG 373 ==
LOC: HO.ED 13:06 → HO.EDOVER 16:05 → HO.S3 08-06 15:33
PROVIDERS: Family Medicine; Admitting Provider Hospitalist; Emergency Provider Emergency Medicine; PCP Nurse Practitioner Family; Visit Provider Internal Medicine
DX: A04.72 Enterocolitis due to Clostridium difficile, not specified as recurrent (principal); E87.6 Hypokalemia; E78.5 Hyperlipidemia, unspecified; I10 Essential (primary) hypertension; Z66 Do not resuscitate; G30.9 Alzheimer's disease, unspecified; E86.0 Dehydration; E83.42 Hypomagnesemia; R29.6 Repeated falls; R62.7 Adult failure to thrive; Z68.27 Body mass index [BMI] 27.0-27.9, adult; Z91.81 History of falling; F02.80 Dementia in other diseases classified elsewhere, unspecified severity, without behavioral disturbance, psychotic disturbance, mood disturbance, and anxiety; Z20.822 Contact with and (suspected) exposure to COVID-19; Z91.013 Allergy to seafood; Z88.0 Allergy status to penicillin; Z79.899 Other long term (current) drug therapy
CPT/HCPCS: 36415; 74176; 80048; 80076; 83605; 83690; 83735; 83880; 84484; 85025; 85027; 87040; 87324; 87493; 87635; 92526; 92610; 97110; 97116; 97162; 97530; 99285; J1650; J3475

== ENCOUNTER 2024-12-02 20:24 | Emergency (ER) | payer MEDICARE, SELFPAY ==
[2024-12-02 20:32] VITALS: BP 178/100; PULSE 86; O2SAT 96
[2024-12-02 20:35] VITALS: BP 159/80; PULSE 81; RESP 18; TEMP 36.8; O2SAT 96; BMI 31.1
--- OUTSIDE RECORDS SUMMARY | 2024-12-02 21:08 | XMS_ITS | Data Portability ---
Author Organization [facility], Main Office Address [address] [facility] [address] [place] [address] Care Team Providers Care Stogy Maker Name Role Phone OVIDIO VINCENT - 3RD FLOOR OTHER ANDRIY LAYNE Primary Care Provider Assessment No assessment recorded. Plan of Treatment Reminders Order Date Submit Date Provider Last Modified By Organization Details Last Modified Time Details Appointments None record ed. Lab None record ed. Referral None record ed. Procedures None record ed. Surgeries None record ed. Imaging None record ed. Medication Orders None record ed. Patient TargetsNo targets recorded. Patient InstructionsNo instructions recorded. Reason for Referral None Reported. Problems Name Problem SNOMED Code Status Onset Date Resolution Date Notes Provider Name and Address Organization Details Recorded Time Alzheimer 's disease 18908310 Active 2021 Jorge A carter [facility] 2 12:19:05 Essential hypertens ion 37105303 Active 2021 Jorge A Mitchell [facility] 2 12:19:18 Hyperlipi demia 30947133 Active 2021 Jorge A Mitchell [facility] 2 12:19:27 Clostridi um difficile colitis 464039143 Active 2021 Jorge A Mitchell [facility] 2 12:20:04 Interstit ial lung disease 644218742 Active [address] [place] [facility] Jorge A carter [facility] 2 12:20:37 Acute hypokalem ia 03760180 Completed 202108/12/2022 Jorge A carter [facility] 2 12:21:00 Hypomagne semia 057083809 Completed 202108/12/2022 Jorge A Lyonsultz null, [facility] 2 12:21:18 Unintenti onal weight loss 794853405 Active 2021 Jorge A Lyonsultz null, [facility] 2 12:22:33 Overactiv e urinary bladder 069152375 Active 2021 Jorge A Lyonsultz null, [facility] 2 12:31:00 Mood disorder 69624029 Active 2021 Amanda Ibarra MD [address], [address], [place], [address], [facility] 3 13:15:05 Vitamin D deficienc y 47791674 Active 2021 ALAN TOLLIVER [address], [address], [place], [address], [facility] 2 20:30:21 Recurrent falls 174683640 Active 2021 ALAN TOLLIVER [address], [address], [place], [address], [facility] 2 20:30:26 Dysphagia 10959493 Active 2021 ALAN TOLLIVER [address], [address], [place], [address], [facility] 2 20:32:35 History of urinary tract infection 647495497539 7 Active 2021 Monika Fraga MD [address], [address], [place], [address], [facility] 2 12:06:09 Acute COVID-19 4367339346 Active 2022 Monika Fraga MD [address], [address], [place], [address], [facility] 3 20:04:12 Primary insomnia 6634617 Active 2023 Papo Del Angel MD [address], [address], [place], [address], [employer] 4 14:04:47 Problem Notes None recorded. Procedures Surgical History Date Name Laterality Status Provider Name and Address Organization Details Recorded Time hysterectomy completed JENNIFER ECHAVARRIA BELT SPLICER [address] [facility], [address], [place], [address], [employer] 08/12/2022 20:16:07 cholecystectomy completed KENTON TOLLIVERP [address], [address], [place], [address], [employer] 08/12/2022 20:16:12 Imaging Results None recorded. Procedure Notes None recorded. Medical Equipment None Reported. Allergies Allergen ID Allergen Name Allergen Category Reaction Reaction Severity Criticality Documentation Date Start Date Code Code System Note Provider Name and Address Organization Details Recorded Time 43421 amoxicill in medicatio n Not available Not available Not available 08/12/2022 723 RxNorm Not Available Not Available Not Available 33658 shellfish derived food,medi cation Not available Not available Not available 08/12/2022 80461 UNK Not Available Not Available Not Available Medications Not known to be on any medication Vitals Date Recorded Body height Body mass index (BMI) Body weight Heart rate Respiratory rate Body temperature Systolic blood pressure Diastolic blood pressure Provider Name and Address Organization Details Last Updated DateTime 4 165.1 cm 27.1 kg/m2 77932.5 6 g 64 /min 18 /min 97.7 [degF] 120 mm[Hg] 62 mm[Hg] Eva Frausto NP [address] [facility] [address], [address], [place], [address], [employer] 4 12:14:25 Date Recorded Body height Body weight Body mass index (BMI) Heart rate Respiratory rate Body temperature Oxygen saturation Oxygen saturation in Arterial blood by Pulse oximetry Systolic blood pressure Diastolic blood pressure Provider Name and Address Organization Details Last Updated DateTime 4 165.1 cm 25890.9 6 g 27 kg/m2 70 /min 18 /min 97.4 [degF] 96 % 96 % 120 mm[Hg] 62 mm[Hg] Eva Frausto NP [address] [facility] [address], [address], [place], [address], [employer] 4 19:49:26 Date Recorded Body height Body mass index (BMI) Body weight Heart rate Respiratory rate Body temperature Oxygen saturation Oxygen saturation in Arterial blood by Pulse oximetry Provider Name and Address Organization Details Last Updated DateTime 4 165.1 cm 26.8 kg/m2 18484.3 7 g 70 /min 18 /min 97.9 [degF] 96 % 96 % Eva Frausto NP [address] [facility], [facility] [address], [place], [address], [employer] 4 11:46:17 Date Recorded Body height Body mass index (BMI) Body weight Heart rate Respiratory rate Body temperature Oxygen saturation Oxygen saturation in Arterial blood by Pulse oximetry Systolic blood pressure Diastolic blood pressure Provider Name and Address Organization Details Last Updated DateTime 5 165.1 cm 26.8 kg/m2 11159.3 7 g 78 /min 18 /min 98 [degF] 97 % 97 % 115 mm[Hg] 65 mm[Hg] Eva Frausto NP [address] [facility] [address], [place], [address], [employer] 5 11:55:32 Date Recorded Body height Heart rate Respiratory rate Body temperature Oxygen saturation Oxygen saturation in Arterial blood by Pulse oximetry Systolic blood pressure Diastolic blood pressure Provider Name and Address Organization Details Last Updated DateTime 5 165.1 cm 80 /min 18 /min 97.1 [degF] 97 % 97 % 128 mm[Hg] 66 mm[Hg] ELLA WASHINGTON NP [address] [facility], [facility] [address], [place], [address], [employer] 5 13:21:40 Social History Question Answer Notes LastModified by Organizat ion Details LastModified Time Tobacco Smoking Status Former Smoker 1/2 ppd for 3 yrs. Per old records) Monika Fraga MD [address] [facility] [address], [place], [address], [employer] 08/16/2022 11:13:34 Do You Have An Advance Directive? Yes DNR/INTUBATE AND VENTILATE/US E NON INVASIVE VENTILATION/ TRANSFER TO HOSPITAL/UND ECIDED ABOUT DIALYSIS/NO NUTRITION/US E HYDRATION Information not available 08/12/2022 What Is Your Level Of Alcohol Consumption? None very Little Information not available 08/12/2022 What Is Your Level Of Caffeine Consumption? Occasional Information not available 08/12/2022 What Is Your Code Status? DNR Information not available 08/12/2022 [facility] Information not available 10/21/2022 Legal Guardian? No Informati on not available 08/12/2022 Do You Have A Medical Power Of Fisher Quahog? Yes Raymond Harris (son)-ON FILE, Invoked Information not available 08/16/2022 What Was The Date Of Your Most Recent Tobacco Screening? 08/16/2022 Information not available 08/16/2022 Do You Have An Out Of Hospital DNR? Yes Information not available 08/12/2022 Have You Ever Been Counseled For Unhealthy Alcohol Use? No Information not available 08/12/2022 What Is Your Relationship Status? In 2020, He Had Dementia Information not available 08/16/2022 Do You Feel Stressed (tense, Restless, Nervous, Or Anxious, Or Unable To Sleep At Night)? [id number] Information not available 08/12/2022 Do You Use Any Illicit Or Recreational Drugs? No Information not available 08/12/2022 Has Tobacco Cessation Counseling Been Provided? No N/a As Pt No Longer Smokes Information not available 10/21/2022 How Many Years Have You Smoked Tobacco? 3 Information not available 08/16/2022 Do You Have Any Dietary Restrictions? No Information not available 08/12/2022 Do You Or Have You Ever Used Any Other Forms Of Tobacco Or Nicotine? No Information not available 08/12/2022 Sex: Unknown Functional Status None recorded. Mental Status None recorded. Family History Relationship Description Onset Age of this Age Resolved Age Notes LastModified by Organization Details LastModified Time Father Father Not available 2021 12:13:45 Notes:UNABLE TO GIVE ACCURAT E HISTORY Medical History No medical history recorded. Gynecological HistoryNo gynecological history recorded. Obstetrics History GPAL:G 0 P 0 0 0 0 Immunizations Vaccine Type Date Status Note Provider Nam e and Address Organization Details Recorded Time Influenza, split virus, quadrivalent, preservative 2 completed Brandi Brett [facility] 08/12/2022 15:18:49 pneumococcal polysaccharide PPV23 1 completed Brandi West [facility] 08/12/2022 15:19:04 COVID-19, mRNA, LNP-S, PF, 30 mcg/0.3 mL dose 2 completed Brandi West [facility] 08/12/2022 15:19:20 COVID-19, mRNA, LNP-S, PF, 30 mcg/0.3 mL dose 1 completed Brandi West [facility] 08/12/2022 15:19:29 COVID-19, mRNA, LNP-S, PF, 30 mcg/0.3 mL dose 1 completed Brandi West [facility] 08/12/2022 15:19:38 COVID-19, mRNA, LNP-S, PF, 30 mcg/0.3 mL dose 1 completed Brandi West [facility] 08/12/2022 15:19:48 Influenza, split virus, quadrivalent, preservative 1 completed Brandi West [facility] 08/12/2022 15:20:23 Influenza, recombinant, quadrivalent, PF 0 completed Brandi West [facility] 08/12/2022 15:21:05 Influenza, adjuvanted, quadrivalent, PF 3 completed Shabana Davis [facility] 11/21/2023 17:42:52 pneumococcal polysaccharide PPV23 3 completed Shabana Davis [facility] 11/21/2023 18:02:11 COVID-19, mRNA, LNP-S, bivalent, PF, 30 mcg/0.3 mL dose 3 completed Shabana Davis [facility] 11/24/2023 11:56:51 Past Encounters Encounter ID Performer Location Encounter Start Date Encounter Closed Date Diagnosis/Indication Diagnosis SNOMED-CT Code Diagnosis ICD10 Code Diagnosis Note [id number] ALAN TOLLIVER [address] [address] 08/12/2022 09:14:45 08/15/2022 15:53:46 Unintentional weight loss 652190085 R63.4 Assessment :- Weight 77.1 kg per d/c summary on 08/11. Plan:- Continue to monitor.- Will order weekly weights.- Will consult installation and repair technician. Clostridiu m difficile colitis 690034349 A04.72 Assessment :- Diarrhea improved.- No abdominal pain. Plan:- Continue oral vancomycin 250 mg q 6 hrs (end 08/17).- Ensure adequate hydration. -maintain isolation Interstiti al lung disease 334404315 J84.9 Assessment :- Incidental finding.- Pt asymptomat ic. Plan:- Refer to pulmonolog y if symptomati c. Hyperlipidemia 99287981 E78.5 Plan:- Continue pravastati n 10 mg qd. Essential hypertension 77762003 I10 Assessment :- 124/82 on 08/12. Plan:- Continue amlodipine 5 mg qd- Continue lisinopril 10 mg qd-monitor b/p and labs Alzheimer's disease 2692 9004 G30.9 Assessment :- Alert and oriented to place and name. Poor insight into situation and abilities. Poor short-term and long-term memory. Plan:- Continue Seroquel 25 mg bid.- HCP invoked-mo nitor for safety Leukocytosis 266801799 D 72.829 Assessment :- 12.9 on 08/12. Similar to last WBC before d/c.- Stable- Related to C. diff infection. Plan:- Continue to monitor. Mood disorder 86167668 F 39 Assessment :- No depressive symptoms today. Plan:- Continue sertraline 175 mg qd.- Continue bupropion 100 mg qd.-psych eval and treat prn Overactive urinary bladder 391288995 N32.81 Plan:- Continue trospium 20 mg bid.-monit or for symptoms History of urinary tract infection 4820029499 107 Z87.440 Assessment :- Four UTIs in last year.- Bacteria and [place] in [place] [facility] Likely colonized. - No urinary symptoms today. Plan:- Continue to monitor. Recurrent falls 06786260 2 R29.6 PT/OT eval and treat prn monitor for safety Vitamin D deficiency 347 39496 E55.9 cholecalci ferol 1000 units qd monitor labs Dysphagia 30379708 R13.[address] eval and treat chopped diet thin liquids monitor for aspiration [id number] ELLA WASHINGTON NP [facility] [address] [address] 08/15/2022 12:56:22 08/16/2022 13:57:49 Recurrent falls 785925118 R29.6 Fell last night, 08/13No injury reportedNe uros stable.PT OT eval and tx.Monitor for safety, high risk due to impaired cognition. [id number] Monika Fraga MD [facility] [address] [address] 08/16/2022 10:54:01 08/19/2022 15:26:08 Clostridium difficile colitis 366957822 A04.72 Diarrhea is improved.C ontinue vancomycin 250 mg q 6 hrs po until 08/21.Enco urage po fluids.Mon itor bowel function and vitals.Iso lation precaution s until off abx. Unintentio nal weight loss 131968671 R63.4 Documented wt of 168 in 11/2021 at PCP office and 143 on 08/01/22En courage po intake.Con machine brush maker supplement s if not taking meals well.Samara alcantara consult.Mo nitor wts. Interstiti al lung disease 694326631 J84.89 In hx.No sxs.Monito r Hyperlipidemia 83146355 E78.49 Continue pravastati n 10 mg qd.Monitor labs yearly. Essential hypertension 49984528 I10 BP not documented since admission, but was good then.BP goal for this elderly woman is permissive HTN, with SBP<160 and DBP<90Cont inue amlodipine 5 mg qd and lisinopril 10 mg qd.Monitor BP and labs. Will order daily vitals for 2 wks. Alzheimer's disease 8558 9004 F02.B0 Reportedly with marked decline over the past few months, family now considerin g LTC.Contin ue Seroquel 25 mg BID, sertraline 175 mg qd, and bupropion 100 mg qd.Continu e supportive care, expect decline.HC P invokedMon itor mood and behaviors. Psych consult. Leukocytosis 145296596 D 72.829 Much improved since 08/05, still sl. out of range.No acute infection. Monitor labs. Mood disorder 13743988 F 41.8 F32.89 Continue meds as above for now. On high dose of sertraline . If pt stays here for any length of time would try GDR.Mood good today.Shelley tor mood.Consu lt psych Overactive urinary bladder 363403990 N32.81 Continue trospium 20 mg BIDMonitor urinary function. History of urinary tract infection 6342096551 107 Z87.440 With frequent UTIs, last one in 06/2022.Uri ne in ED looked contaminat ed, not cxed.Monit or for sxs. Recurrent falls 00811829 2 R29.6 Very deconditio mariama.Needs PT/OT for strengthen ing, balance, gait training, safety and function.C ontinue fall precaution s.Monitor for safety. Vitamin D deficiency 347 60309 E56.8 Continue cholecalci ferol 1000 IU qdMonitor labs prn. Dysphagia 37356588 R13.1 9 [address] in[address].Katarina nue modified diet and PRIMING MACHINE OPERATOR interventi ons.Monito r for aspiration [id number] ALAN TOLLIVER [address] [address] 08/19/2022 08:44:22 08/21/2022 15:17:18 Clostridium difficile colitis 841023894 A04.72 Assessment :- No diarrhea or abdominal pain. Plan:- Continue oral vancomycin 250 mg q 6 hrs (end 08/21).- Ensure adequate hydration. Unintentio nal weight loss 396640219 R63.4 Assessment :- Weight 77.1 kg (169.9 lb) per d/c summary on 08/11.- 149 lb on 08/15.- Suspect equipment error. Plan:- Continue to monitor weights weekly. Essential hypertension 47286954 I10 Assessment :- 112/71 to 140/83 since 08/16.- Most 120s/70s.- Well-contr olled. Plan:- Continue amlodipine 5 mg qd- Continue lisinopril 10 mg qd-monitor b/p and labs Alzheimer's disease 2692 9004 G30.9 Assessment :- Alert and oriented to place and name. Poor insight into situation and abilities. Poor short-term and long-term memory. Plan:- Continue Seroquel 25 mg bid.- HCP invoked-mo nitor for safety Leukocytosis 689097232 D 72.829 Assessment :- 12.9 on 08/12. Similar to last WBC before d/c.- Stable- Related to C. diff infection. Plan:- Continue to monitor. History of urinary tract infection 6068095719 107 Z87.440 Assessment :- Four UTIs in last year.- Bacteria and nitrites in urine [place] [facility] Likely colonized. - No urinary symptoms today. Plan:- Continue to monitor. Recurrent falls 87573669 2 R29.6 - Continue bed alarms.- PT/OT eval and treat prn.- Monitor for safety. [id number] ALAN TOLLIVER [address] [address] 08/23/2022 10:59:55 09/06/2022 15:35:57 Alzheimer's disease 55081051 G30.9 expect decline supportive care HCP invoked monitor for safety Essential hypertension 59812006 I10 amlodipine 5 mg qd lisinopril 10 mg qd monitor b/p and labs Mood disorder 22378053 F 41.8 F32.89 sertraline 175 mg qd bupropion 100 mg qd seroquel 25 mg bid psych eval and treat prn [id number] ALAN TOLLIVER [address] [address] 08/26/2022 12:20:23 09/06/2022 16:15:04 Alzheimer's disease 09348677 G30.9 expect decline supportive care HCP invoked monitor for safety Mood disorder 82169287 F 41.8 F32.89 sertraline 175 mg qd bupropion 100 mg qd seroquel 25 mg bid psych eval and treat prn Cough 15622086 R05.9 noted congested cough history of interstiti al lung disease monitor for further testing [id number] JOMAR BECKER PA-C [facility] [address] [address] 09/05/2022 14:42:21 09/10/2022 10:58:27 Unintentional weight loss 680779276 R63.4 MOLST includes no artificial nutritionR ecent c-diffd/c non-essent ial meds-Vit D3-Pravast atin - no hx CAD and risks of statin therapy outweigh benefits in this patientAdd Remeron 7.5 mg po qhs-start when available- may be able to d/c MelatoninC onsider d/c Wellbutrin since can cause/exac erbate wt loss (preeti of adding Remeron)Up date TSHConside r empiric PPIWould avoid Aricept if meds were going to be considered for dementia since can contribute to weight lossConsid er increasing Ensure to tidMonitor weightsRD also following Essential hypertension 49080670 I10 BPs stableDecr ease monitoring to bid q monthNo edema on NorvascMon itor and adjust meds prn Oral phase dysphagia 429 443660 R13.11 On modified dietSLP prn Alzheimer's disease 2692 9004 G30.9 Didn't tolerate SLUMS [id number] JOMAR BECKER PA-C [facility] [address] [address] 09/10/2022 14:07:51 09/13/2022 16:24:48 Adult failure to thrive syndrome 208932421 R62.7 Off non-essent ial medsOn RemeronWei ght only down 0.1 lbs from last weekMonito r weightsRD also following [id number] JOMAR BECKER PA-C [facility] [address] [address] 09/23/2022 14:32:29 10/18/2022 13:22:42 Acute confusion 724982978 R41.0 Exam benignincr eased confusion could be from Tamiflufol low clinically [id number] Monika Fraga MD [facility] [address] [address] 09/26/2022 16:09:33 10/03/2022 15:11:32 Adult failure to thrive syndrome 157715463 R62.7 Wt. stable the last few wks.COntin ue to encourage po intake and supplement s as tolerated. Monitor weightsRD also following Essential hypertension 74074071 I10 BP in good control on amlodipine 5 mg qd and lisinopril 10 mg qd.BP goal for this elderly woman is permissive HTN, with SBP<150 and DBP<90Moni tor BP and labs. Alzheimer's disease 2692 9004 F02.B11 Continues with intrusive behaviors and agitation when redirectio n is attempted. Continue sertraline 175 mg qd, remeron 7.5 mg qd, seroquel 25 mg BID, buproprion 100 mg qd and melatonin 3 mg qhs.Contin ue supportive care, expect decline.HC P invokedMon itor mood and behaviors. Psych followingC onsider sertraline GDR. Recurrent falls 86069176 2 R29.6 Continues to be deconditio mariama.Needs PT/OT for strengthen ing, balance, gait training, safety and function.C ontinue fall precaution s.Monitor for safety. Overactive urinary bladder 872636847 N32.81 Continue trospium 20 mg BIDMonitor urinary function. Hyperlipidemia 39099714 E78.49 Continue pravastati n 10 mg qd.Monitor labs yearly. Dysphagia 98758393 R13.1 9 Noted inpt.Katarina nue modified diet and PRIMING MACHINE OPERATOR interventi ons.Monito r for aspiration [id number] JOMAR BECKER PA-C [facility] [address] [address] 10/08/2022 14:57:29 10/18/2022 16:20:52 Altered mental status 382010524 R41.82 back to baselinef/ u prn Acute COVID-19 955625633 8 U07.1 PaxlovidSu pportive carePrecau tions per facility protocolf/ u prn [id number] Monika Fraga MD [facility] [address] [address] 10/21/2022 18:08:56 10/23/2022 20:35:34 Acute COVID-19 4396222417 U07.1 Now recovered. Monitor for sequelae Alzheimer's disease 2692 9004 F02.B11 She continues to have intrusive behaviors and agitation when redirectio n is attempted. Continue sertraline 175 mg qd, remeron 7.5 mg qd, seroquel 25 mg BID, buproprion 100 mg qd and melatonin 3 mg qhs.Contin ue supportive care, expect decline.HC P invokedMon itor mood and behaviors. Psych following Adult fail ure to thrive syndrome 451059022 R62.7 Wt. remains stable.Con tinue to encourage po intake and supplement s as tolerated. Continue to monitor wtsRD also following Essential hypertension 88666294 I10 BP remains on low side on amlodipine 5 mg qd and lisinopril 10 mg qd.BP goal for this elderly woman is permissive HTN, with SBP<150 and DBP<90May be able to decrease meds.Monit or BP and labs. Overactive urinary bladder 947476167 N32.81 Continue trospium 20 mg BIDMonitor urinary function. Hyperlipidemia 29164893 E78.49 Continue pravastati n 10 mg qd.Monitor labs yearly. Dysphagia 81384093 R13.1 9 [address] inpt.Katarina nue modified diet and PRIMING MACHINE OPERATOR interventi ons.Monito r for aspiration JOMAR BECKER PA-C [facility] [address] [address] 11/12/2022 13:02:40 12/02/2022 16:28:09 Essential hypertension 17279776 I10 BPs stable and well-contr olledd/c any hold parameters monthly monitoring f/u prn [id number] JOMAR BECKER PA-C [facility] [address] [address] 12/19/2022 12:37:47 01/07/2023 12:54:29 Weight loss 37757947 R63.4 mild and has leveled offnon-ess ential meds previously d/c'dmonit or weightsRD also following Essential hypertension 19482972 I10 BPs stablef/u prn Oral phase dysphagia 429 523690 R13.11 On modified dietSLP prn [id number] Amanda Ibarra MD [facility] [address] [address] 02/07/2023 08:27:24 02/12/2023 10:28:52 Alzheimer's disease 51490145 F02.B11 expect declinewil l monitor and support as neededsee mixed anxiety disorder Mixed anxi ety and depressive disorder 281027945 F41.8 sertraline 75 mg dailymirta zapine 15 mg at hsbupropri on SR 100 mg dailyqueti apine 25 mg bidwill monitor Essential hypertension 57169349 I10 lisinopril 10 mg dailyamlod ipine 5 mg dailywill monitor [id number] ALAN Campbell [facility] [address] [address] 04/01/2023 09:40:38 04/03/2023 10:18:54 Alzheimer's disease 57874110 F02.B11 expect declinesup portive caresee meds below Mixed anxi ety and depressive disorder 785331110 F41.8 mood stablesert raline 150 mg qd - appears to be the correct dosemirtaz apine 15 mg qhsbupropr ion SR 100 mg qdquetiapi ne 25 mg bidmonitor mood, behaviorsH DBH following Essential hypertension 00961330 I10 bp normallisi nopril 10 mg qdamlodipi ne 5 mg qdmonitor bp and adjust doses prn [id number] Amanda Ibarra MD [facility] [address] [address] 06/11/2023 07:28:04 06/13/2023 11:30:55 Alzheimer's disease 59033651 F02.B11 expect declinewil l monitor and support as neededsee mixed anxiety disorder Mixed anxi ety and depressive disorder 279740234 F41.8 sertraline 75 mg dailymirta zapine 7.5 mg at hsbupropri on SR 100 mg dailyqueti apine 25 mg bidwill monitor Essential hypertension 99849650 I10 lisinopril 10 mg dailyamlod ipine 5 mg dailywill monitor [id number] ELLA WASHINGTON NP [facility] [address] [address] 07/31/2023 13:25:14 08/04/2023 10:59:14 Alzheimer's disease 43196384 F02.B11 expect continued declinewil l monitor and support as neededsee meds aboveHCP invoked Mixed anxi ety and depressive disorder 105145390 F41.8 Continue:s ertraline 75 mg dailymirta zapine 7.5 mg at hsbupropri on SR 100 mg dailyqueti apine 25 mg bidmelaton in 3 mg q HSmonitor mood, behaviors, adjust meds prnPsych eval prn Essential hypertension 81532748 I10 Continue:l isinopril 10 mg dailyamlod ipine 5 mg dailymonit or VS, labs, adjust meds prn Hyperlipidemia 09861992 E78.49 Not on meds at this time Interstiti al lung disease 750844779 J84.89 Monitor resp. statuss Overactive urinary bladder 703701517 N32.81 Continue trospium 20 mg dailyMonit or bladder function, voiding Recurrent falls 67341700 2 R29.6 No recent falls.MORS E completed - moderate fall riskPT OT eval and tx.Monitor for safety Unintentio nal weight loss 276582999 R63.4 [id number] ELLA WASHINGTON NP [facility] [address] [address] 08/19/2023 09:50:13 08/20/2023 15:57:52 Essential hypertension 73359590 I10 VSSContinu e:lisinopr il 10 mg dailyamlod ipine 5 mg dailymonit or VS, labs, adjust meds prn Mixed anxi ety and depressive disorder 164431403 F41.8 Pleasantly confused, no behaviorsC ontinue:se rtraline 75 mg dailymirta zapine 7.5 mg at hsbupropri on SR 100 mg dailyqueti apine 25 mg bidmelaton in 3 mg q HSmonitor mood, behaviors, adjust meds prnPsych eval prn Alzheimer's disease 2692 9004 F02.B11 expect continued declinewil l monitor and support as neededsee meds aboveHCP invoked Overactive urinary bladder 486649426 N32.81 Continue trospium 20 mg dailyMonit or bladder function, voiding Interstiti al lung disease 711074727 J84.89 Monitor resp. statuss Hyperlipidemia 62036198 E78.49 Not on meds at this time Recurrent falls 37957209 2 R29.6 No recent falls.MORS E completed at last visit - moderate fall riskPT OT eval and tx.Monitor for safety Unintentio nal weight loss 012510323 R63.4 Weight improvingC ontinue supplement sDietician followingM onitor [id number] Eva Frausto NP [facility] [address] [address] 09/11/2023 09:25:10 09/17/2023 11:23:18 Alzheimer's disease 26353574 F02.B11 expect continued declinewil l monitor and support as neededsee meds aboveP invoked Vitamin D deficiency 347 06171 E56.8 she has been off vit d for some time, unclear whywill check vit d levelMonit or labs prn. Asthenia 02495054 R53.1 she states she felt weaker lately and more tiredwill get labs cbc with diff, cmp, iron, iron sat %, vit d, b12, folic acid on saturday 09/15 to assess for deficienci es [id number] Eva Frausto NP [facility] [address] [address] 09/15/2023 14:20:09 09/23/2023 14:08:11 Vitamin D deficiency 95895093 E56.8 resolvedsh e has been off vit d for some time, unclear whyvit d checked while off vit d supplement and wnlMonitor labs prn. 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 sertraline 150 mg dailymirta zapine 7.5 mg at hsbupropri on SR 100 mg dailyqueti apine 25 mg bidwill monitor Essential hypertension 18526638 I10 lisinopril 10 mg dailyamlod ipine 5 mg dailywill monitor Overactive urinary bladder 333029601 N32.81 trospirum 20 mg bidwill monitor [id number] Eva Frausto NP [facility] [address] [address] 11/13/2023 11:04:33 11/17/2023 15:33:14 Alzheimer's disease 06607016 F02.B11 expect declinewil l monitor and support as neededsee mixed anxiety disorder Mixed anxi ety and depressive disorder 492955891 F41.8 per [facility] 11/13 recommenda tions: continue psychother apy r/o delirium as evid by disorienta tion & increased stereotypi es will order ua and labs contsertra line 150 mg dailymirta zapine 7.5 mg at hsbupropri on SR 100 mg dailyqueti apine 25 mg bid psych prnsupport rosio carewill monitor Mood disorder 01883064 F 41.8 F32.89 see above [id number] Eva Frausto NP [facility] [address] [address] 11/17/2023 13:30:03 11/18/2023 19:57:27 Alzheimer's disease 59826813 F02.B11 expect declinewil l monitor and support as neededsee mixed anxiety disorder Mixed anxi ety and depressive disorder 246056204 F41.8 per [facility] 11/13 recommenda tions: continue psychother apyr/o delirium as evid by disorienta tion & increased stereotypi eslabs and ua ordered. Labs wnl. see acute cystitis above contsertra line 150 mg dailymirta zapine 7.5 mg at hsbupropri on SR 100 mg dailyqueti apine 25 mg bid psych prnsupport rosio carewill monitor Mood disorder 80756017 F 41.8 F32.89 see above Acute cystitis 53251509 N30.00 klebsiella and ecoli infection noted on urine culture susceptibl e to cipro 11/17 Started on cipro 250 mg po bid x 7 days and probitoic 1 tab po bid x 10 days.monit or [id number] JOAN LYEVA NP [facility] [address] [address] 12/05/2023 10:52:50 12/09/2023 13:54:02 Acute cystitis 46473146 N30.00 recoveredk lebsiella and ecoli infection noted on urine culture susceptibl e to cipro11/17 Started on cipro 250 mg po bid x 7 days and probitoic 1 tab po bid x 10 days.monit or Alzheimer's disease 2692 9004 F02.B11 expect declinewil l monitor and support as neededsee mixed anxiety disorder Mixed anxi ety and depressive disorder 266343992 F41.8 per [facility] 11/13 recommenda tions: continue psychother apyr/o delirium as evid by disorienta tion & increased stereotypi eslabs and ua ordered. Labs wnl. see acute cystitis above contsertra line 150 mg dailymirta zapine 7.5 mg at hsbupropri on SR 100 mg dailyqueti apine 25 mg bidpsych prnsupport rosio carewill monitor Mood disorder 78736220 F 41.8 F32.89 Essential hypertension 55571686 I10 lisinopril 10 mg dailyamlod ipine 5 mg dailywill monitor Overactive urinary bladder 170218458 N32.81 trospirum 20 mg bidwill monitor [id number] Papo Del Angel MD [facility] [address] 03/17/2024 14:00:04 03/19/2024 12:08:39 Alzheimer's disease 72658900 F02.B11 baseline dementiaco ntinue supportive caremonito r for decline currently pleasantly confusedps h eval prn Essential hypertension 92775586 I10 lisinopril 10 mg qdnorvasc 5 mg qdmonitor bp and need to titrate Primary insomnia 3426683 F51.01 melatonin 3 mg qhsmonitor for effect and need to titrate [id number] [facility] [address] 03/22/2024 16:49:05 03/25/2024 09:47:17 Alzheimer's disease 94939055 F02.B11 baseline dementiaco ntinue supportive caremonito r for decline currently pleasantly confusedps ych eval prn Acute COVID-19 077413026 8 U07.1 covid positive test : startmolnu piravir 800 mg po bid x 5 daysbenzon ate 200 mg po tid x5 days, then q 8 hours prn x 10daysisol ation precaution sbmp and cbc 03/23/24mon itor for sequelae [id number] Eva Frausto NP [facility] [address] [place] [address] 03/24/2024 13:46:26 03/31/2024 15:53:12 Acute COVID-19 2528790507 U07.1 covid positive test : startmolnu piravir 800 mg po bid x 5 daysbenzon ate 200 mg po tid x5 days, then q 8 hours prn x 10daysisol ation precaution sbmp and cbc 03/23/2403/24insura nce declines molnupirav ir and benzonate and will not deliver, will dc start 1/2 dose paxlovid now that labs are back bid x 5days( egfr 56)start robitussin 10 ml po q 4hours prn cough x 2 weeksfamil y and pt want antiviral therapyenc ourage po hydrationm onitor for sequelae Alzheimer's disease 3353 9004 F02.B11 baseline dementiaco ntinue supportive caremonito r for decline currently pleasantly confusedps [facility] eval prn [id number] Eva Frausto NP [facility] [address] [place] [address] 03/26/2024 10:58:26 03/31/2024 16:38:04 Acute COVID-19 0802121035 U07.1 covid positive test 4: started on tmolnupira vir 800 mg po bid x 5 daysbenzon ate 200 mg po tid x5 days, then q 8 hours prn x 10daysisol ation precaution sbmp and cbc 03/23/24pus h fluids 03/24insura nce declines molnupirav ir and benzonate and will not deliver, will dc 1/2 dose paxlovid now that labs are back bid x 5days( egfr 56)start robitussin 10 ml po q 4hours prn cough x 2 weeksfamil y and pt want antiviral therapy 03/26 antiviral started and will cont with planencour age po hydrationm onitor for sequelae Alzheimer's disease 2692 9004 F02.B11 baseline dementiaco ntinue supportive caremonito r for decline currently pleasantly confusedps [facility] [place]n [id number] Eva Frausto NP [facility] [address] 04/22/2024 11:03:56 04/27/2024 14:58:26 Acute COVID-19 5948506786 U07.1 resolvedco vid positive test 4: started on tmolnupira vir 800 mg po bid x 5 daysbenzon ate 200 mg po tid x5 days, then q 8 hours prn x 10daysisol ation precaution sbmp and cbc 03/23/24pus h fluids 03/24insura nce declines molnupirav ir and benzonate and will not deliver, will dc 03/24start 1/2 dose paxlovid now that labs are back bid x 5days( egfr 56)start robitussin 10 ml po q 4hours prn cough x 2 weeksfamil y and pt want antiviral therapy 03/26 antiviral started and will cont with planencour age po hydrationr esolved nowmonitor for sequelae Alzheimer's disease 2692 9004 F02.B11 baseline dementiaco ntinue supportive caremonito r for decline currently pleasantly confusedps [facility] eval prn Asthenia 49422971 R53.1 she states she felt weaker lately post covidreque sting therpy and will agree04/22 therapy to eval and treat for weaness [id number] Eva Frausto NP [facility] [address] 05/14/2024 10:56:59 05/18/2024 15:52:28 Acute COVID-19 8397622728 U07.1 resolved,i nitially tested positive on 03/21 with 1/2 dose paxlovid course (molnupira vir not covered from insurance) and now recovering with residual weakness.r esolved nowmonitor for sequelae Alzheimer's disease 2692 9004 F02.B11 baseline dementiaco ntinue supportive caremonito r for decline currently pleasantly confusedps [facility] eval prn Asthenia 83883765 R53.1 improving with therapycon t therapy as jessica and needed Essential hypertension 27668888 I10 bp stablelisi nopril 10 mg qdnorvasc 5 mg qdmonitor bp and need to titrate Primary insomnia 3720965 F51.01 contmelato sulaiman 3 mg qhsmonitor for effect and need to titrate [id number] Eva Frausto NP [facility] [address] [address] 06/10/2024 12:03:02 06/14/2024 11:27:56 Alzheimer's disease 55028376 F02.B11 baseline dementiaco ntinue supportive caremonito r for decline currently pleasantly confusedps [facility] eval prn Asthenia 81998729 R53.1 improving with therapycon t therapy as jessica and needed Essential hypertension 29109546 I10 bp stablelisi nopril 10 mg qdnorvasc 5 mg qdmonitor bp and need to titrate Primary insomnia 9040275 F51.01 contmelato sulaiman 3 mg qhsmonitor for effect and need to titrate Mood disorder 71686318 F 41.8 F32.89 see above Anxiety 72815617 F41.9 9/5dc buprioions tart trazodone 25 mg po bidmonitor for effect and changes [id number] Eva Frausto NP [facility] [address] [address] 07/23/2024 09:00:35 07/28/2024 15:13:53 Alzheimer's disease 45500373 F02.B11 baseline dementiaco ntinue supportive caremonito r for decline currently pleasantly confusedps [facility] eval prn Asthenia 25022674 R53.1 improved with therapy, now offcont therapy as jessica and needed Essential hypertension 08861028 I10 bp stablelisi nopril 10 mg qdnorvasc 5 mg qdmonitor bp and need to titrate Primary insomnia 5230981 F51.01 contmelato sulaiman 3 mg qhsmonitor for effect and need to titrate Mood disorder 66051202 F 41.8 F32.89 see above Anxiety 55111986 F41.9 contquetia pine 25 mg po q amsertrali ne 150 mg po qdtrazodon e 25 mg po bidmonitor for effect and changesfu wtih psych prn [id number] Eva Frausto NP [facility] [address] [address] 08/20/2024 11:43:20 08/23/2024 11:56:24 Alzheimer's disease 17243357 F02.B11 baseline dementiaco ntinue supportive caremonito r for decline currently pleasantly confusedps ych eval prn Anxiety 22796119 F41.9 seems better on new regimencon tquetiapin e 25 mg po q amsertrali ne 150 mg po qdtrazodon e 25 mg po bidmonitor for effect and changesfu wtih psych prn Asthenia 64856790 R53.1 improved with therapy, now offcont therapy as jessica and needed Essential hypertension 04217474 I10 bp stablelisi nopril 10 mg qdnorvasc 5 mg qdmonitor bp and need to titrate Primary insomnia 8899035 F51.01 contmelato sulaiman 3 mg qhsmonitor for effect and need to titrate Mood disorder 11513986 F 41.8 F32.89 see above Acute COVID-19 026369076 8 U07.1 resolved,i nitially tested positive on 03/21 with 1/2 dose paxlovid course (molnupira vir not covered from insurance) and now recovering with residual weakness.r esolved nowmonitor for sequelae [id number] Eva Frausto NP [facility] [address] 10/13/2024 11:54:45 10/14/2024 10:08:56 Alzheimer's disease 12430237 F02.B11 baseline dementiaco ntinue supportive caremonito r for decline currently pleasantly confusedps ych eval prn Anxiety 16020366 F41.9 seems better regimen belowcontq uetiapine 25 mg po q amsertrali ne 150 mg po qdtrazodon e 25 mg po bidremeron 7.5 mg po qhsmonitor for effect and changesfu wtih psych prn Asthenia 37925183 R53.1 off therapycon t therapy as jessica and needed Essential hypertension 94026627 I10 bp stablelisi nopril 10 mg qdnorvasc 5 mg qdmonitor bp and need to titrate Primary insomnia 9238039 F51.01 contmelato sulaiman 3 mg qhsmonitor for effect and need to titrate Mood disorder 24528776 F 41.8 F32.89 see above [id number] ELLA WASHINGTON NP [facility] [address] [place] [address] 11/30/2024 13:20:48 12/02/2024 11:56:13 Cough 45571605 R05.9 Congested cough reported, duration at least for a few days.No SOB, hypoxia, change in MS. (Did decline lunch today, however, which is not like her).Does not appear sick/toxic .LS today remarkably clear even with dx. of ILD.Kishore tly on spiriva, has prn robitussin available as well. Plan -mucinex 600 mg bid x 7 daysalbute rol updrafts q 4 hr prn x 2 wksMonitor VS, sats, LS for change.If worsens, consider labs and CXR Health Concerns Section Related Observation LastModified by Organization Detai ls LastModified Time None Recorded Concern Status LastModified by Organization Details LastModified Time None Recorded Advance Directives Directive Y: DNR/INTUBATE AND VENTILAT E/USE NON INVASIVE VENTILATION/TRANSFER TO HOSPITAL/UNDECIDED ABOUT DIALYSIS/NO NUTRITION/USE HYDRATION Payers Encounter Date Sequence Insurance Name Policy Number Policy Fernandes Covered Member ID Fernandes Member ID Guarantor Name 06/10/2024 2 [place] [id number] Yecenia Harris [id number] Yecenia Harris 06/10/2024 1 [place] [employer] Yecenia Harris [id number] Yecenia Harris 07/23/2024 2 [place] [id number] Yecenia Harris [id number] Yecenia Harris 07/23/2024 1 [place] [employer] Yecenia Harris [id number] Yecenia Harris 08/20/2024 2 [place] [id number] Yecenia Harris [id number] Yecenia Harris 08/20/2024 1 [place] [employer] Yecenia Harris [id number] Yecenia Harris 10/13/2024 2 [place] [id number] Yecenia Harris [id number] Yecenia Harris 10/13/2024 1 [place] [employer] Yecenia Harris [id number] Yecenia Harris 11/30/2024 2 [place] [id number] Yecenia Harris [id number] Yecenia Harris 11/30/2024 1 [place] [employer] Yecenia Harris [id number] Yecenia Harris Notes Date Note Type Note Provider Name and Address Organization Details Recorded Time 06/10/2024 text/html Pt is an 83 yo f [facility] resident seen for an acute rounding visit. PMH significant for dementia, htn, covid 03/[address] psych for follow-up visit. Recommendations made to discontinue Buspar and to start Trazadone 25 mg PO BID for s/s of increased agitation/anxiety. Yecenia reported to him that she has been experiencing increased anxiety. On exam, She is sitting in wheelchair participating in activities throughout day. She does state she is not Yecenia any more and there is a difference and willing to try the medication changes for the anxiety. Eva Frausto NP [address], [address], [place], [address], [facility] 06/10/2024 13:44:22 07/23/2024 text/html Pt is an 83 yo f [facility] resident seen for a routine rounding visit. PMH significant for dementia, htn, covid 03/[address] psych for follow-up visit. Recommendations made to discontinue Buspar and to start Trazadone 25 mg PO BID for s/s of increased agitation/anxiety. Yecenia reported to him that she has been experiencing increased anxiety. Since this change Yecenia states she is feeling less anxious and its better . She was also changed to a private room for history of multiple roommate disagreements. She reports she needs to clean up as she has brought in multiple things from home and its messy . 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 Labs reviewed on 07/06/24 and stable. On exam, Yecenia is sitting up in NAD. She is smiling and pleasant. Denies any new medical concerns. Eva Frausto NP [address], [address], [place], [address], [facility] Giving Assistant 07/28/2024 12:09:20 08/20/2024 text/html Pt is an 83 yo f [facility] resident seen for an annual rounding visit. PMH significant for dementia, htn, covid 03/2024 Pt seen by [facility] therapist and rec: r/o delirium as evid by disorientation & increased stereotypies on 11/12/23. Per nursing she is often intrusive to roommate at times. Her urinalysis showed a kliebiella and ecoli urine infection both susceptible to cipro. Started on cipro 250 mg po bid x 7 days and a probiotic and resolved. Pt tested positive for covid on 03/21/24 and had a mild-moderate course and required therapy to improve strength and balance, now felt back to baseline. In June [facility] psych for follow-up visit. Recommendations made to discontinue Buspar and to start Trazadone 25 mg PO BID for s/s of increased agitation/anxiety. Yeceina reported that she has been experiencing increased anxiety. Since this change Yecenia she is less anxious and seems better. She was also changed to a private room for history of multiple roommate disagreements and seems much happier lately. Overall, She remains on low dose remeron for FTT and weight is stable at 162 lbs this month which is a notable increase from one year ago where she was 141 lbs. Will need to cont for now and monitor for further weight gain. On exam, Yecenia is sitting up in her wheelchair motoring around. She just left activities and feel well. No complaints or concerns today. Eva Frausto NP [address], [address], [place], [address], [employer] 08/20/2024 13:53:17 10/13/2024 text/html [facility] 83 [facility] [place] for a routine rounding visit. PMH significant for dementia, htn, covid 03/2024 On exam, Yecenia is doing well and denies any concerns or complaints today.She states she is so busy with activities and the pork chops today were good. She was seen on 10/11/24 by the psychologist industrial organizational and no new recommendations.She remains in a private room for history of multiple roommate disagreements and seems much happier lately. Overall, weight is stable at 161 lbs and see is doing well. Will need to cont for now and monitor for further weight gain. Eva Frausto NP [address], [address], [place], [address], [employer] 10/13/2024 12:34:29 11/30/2024 text/html Yecenia is seen tod ay for an acute visit. Nsg. is reporting a change is status - increased congested cough, didn't eat lunch today. Asked me to check her. Upon exam, Yecenia is up in her w/c in her room self propelling. Alert, NAD, in good spirits, pleasantly confused. She is a poor historian due to dementia, so ROS no reliable. She thinks she feels good, denies any URI or cold sx. Does agree she has a cough and feels congested. She thinks she has had the cough for a while, like weeks . Denies any GI or complaints.VSSCase discussed with ROOMING HOUSE OPERATOR who cares for Yecenia, she does say she has been coughing, but no other concerns other than she didn't eat lunch today which is not like her. ELLA WASHINGTON NP [address], [address], [place], [address], [employer] 11/30/2024 13:47:09 OBGyn Episode No OBEpisode recorded.
--- NOTE | 2024-12-02 21:33 | ED_ITS ---
HPI - General Adult General Chief complaint: General Medical Stated complaint: nosebleed Time Seen by Provider: 12/02/24 21:06 Source: patient, EMS and RN notes reviewed Mode of arrival: EMS Limitations: altered mental status History of Present Illness ED Provider: DR. Argueta HPI narrative: 84-year-old female with past medical history significant for dementia, hypertension, hyperlipidemia brought in by ambulance for evaluation of left nostril bleed that started at the [facility], that has been spontaneously stopped and control, patient currently not bleeding. Patient is a poor his neyda secondary to dementia, has no complaints now. No headache, no blurry vision, no weakness, no numbness, no CP, no SOB, no abdominal pain. Reviewing patient's medication no history of taking anticoagulation. Related Data Home Medications ?Medication ?Instructions ?Recorded ?Confirmed amlodipine 5 mg tablet 1 tab PO DAILY 08/05/22 08/05/22 bupropion HCl 100 mg tablet,12 hr 1 tab PO QAM 08/05/22 08/05/22 sustained-release cholecalciferol (vitamin D3) 25 25 mcg PO DAILY 08/05/22 08/05/22 mcg (1,000 unit) capsule (Vitamin D3) lisinopril 10 mg tablet 1 tab PO DAILY 08/05/22 08/05/22 pravastatin 10 mg tablet 1 tab PO BEDTIME 08/05/22 08/05/22 quetiapine 25 mg tablet 1 tab PO BID 08/05/22 08/05/22 sertraline 100 mg tablet 175 mg PO DAILY 08/05/22 08/05/22 trospium 20 mg tablet 1 tab PO BID 08/05/22 08/05/22 Previous Rx's ?Medication ?Instructions ?Recorded vancomycin 125 mg capsule 250 mg (2 x 125 mg) PO Q6H 10 days 08/10/22 #80 caps Allergies Allergy/AdvReac Type Severity Reaction Status Date / Time amoxicillin [AMOXICILLIN] Allergy Unknown UNKNOWN Verified 12/02/24 20:35 shellfish derived AdvReac Unknown PT JUST Verified 12/02/24 20:35 [SHELLFISH DERIVED] AVOIDS SHELLFISH Review of Systems Review of Systems: Yes Unobtainable due to mental status ( Dementia) PMFSH Social History Social History Household Members: Family Housing: House Unable to assess alcohol history related to: Unable to respond Patient Tobacco Use Status: Never used Tobacco Advance Directives: Yes Advance Directives on File: Yes Advance Directives Date on File: 08/05/22 Do you have a plan to hurt others: No Plan service: No Current occupational status: retired Physical Exam ED Vital Signs: Vital Signs - 24 hr 12/02/24 20:35 Temperature 98.2 F Pulse Rate 81 Respiratory Rate 18 Blood Pressure 159/80 H Pulse Oximetry 96 Oxygen Delivery Method Room Air BMI result Body Mass Index 31.1 Vital signs have been reviewed and appear to be correct. Blood pressure elevated. Heart rate normal. Respiratory rate normal. Temperature normal. Oxygen saturation normal. Appearance: Alert. Oriented X3. No acute distress. Head: Normal external exam. Normocephalic. Atraumatic. No Kumari signs noted. No raccoon eyes noted Eyes: PERRLA. EOMI. Conjunctiva and sclera normal. Eyelids normal. ENT: no active nostril bleed, TM's Normal. Pharynx normal. Uvula midline. Moist mucous membranes. No trismus noted. No drooling noted. No muffled voice noted. Neck: Normal inspection. Neck supple. FROM. No adenopathy. Thyroid Normal. No meningeal signs. No neck mass noted. CVS: Normal heart rate and rhythm. Heart sound normal. No murmurs noted. Pulses normal throughout. Respiratory: No respiratory distress. Painless inspiration. Breath sounds normal. No wheezes/rales/rhonchi noted. Chest nontender. No accessory muscle usage noted or decreased air movement noted. Abdomen: Soft and nontender. Bowel sounds normal in all 4 quadrants. No distention noted. No organomegaly noted. No visible injury noted. Back: No CVA tenderness. Full range of motion noted. Skin: Skin warm and dry. Normal skin color. Normal skin turgor. No rashes/lesions/lacerations noted. Extremities: No lower extremity edema. Extremities exhibit normal range of motion. Extremities nontender. Neuro: Oriented X 3. Cranial nerve exam: II-XII are grossly intact No motor deficit. No sensory deficit. Reflexes normal. Course Reevaluation(s) Reevaluation #1: Left nostril bleed that is spontaneously stopped and been under control since the patient in the ED. Patient is not taking anticoagulation. Time: 21:39 Medical Decision Making Differential Diagnosis Differential Diagnoses: The differential diagnosis associated with the presentation includes ( nasal bleed, coagulopathy.) Admission/Observation Consideration of admission/observation: Escalation of care including admission/observation considered Discharge Plan Discharge Clinical Impression: Epistaxis Patient Disposition: Home, Self-Care Instructions: Nosebleed (ED) Prescriptions: No Action sertraline 100 mg tablet 175 mg PO DAILY amlodipine 5 mg tablet 1 tab PO DAILY bupropion HCl 100 mg tablet sustained-release 12 hr 1 tab PO QAM trospium 20 mg tablet 1 tab PO BID quetiapine 25 mg tablet 1 tab PO BID pravastatin 10 mg tablet 1 tab PO BEDTIME lisinopril 10 mg tablet 1 tab PO DAILY cholecalciferol (vitamin D3) [Vitamin D3] 25 mcg (1,000 unit) Capsule 25 mcg PO DAILY vancomycin 125 mg Capsule 250 mg PO Q6H 10 Days Qty: 80 0RF Referrals: Papo Del Angel MD [Primary Care Provider] - Print Language: Urdu
[2024-12-02 23:49] VITALS: BP 146/69; PULSE 89; RESP 18; TEMP 36.9; O2SAT 96
--- NOTE | 2024-12-03 00:25 | PC.NURSE ---
Took over care from EZEKIEL Hairston, report given to ems.
== END 2024-12-03 00:31 | disposition home or self-care (01) ==
PROVIDERS: Emergency Provider Emergency Medicine; PCP Family Medicine
DX: R04.0 Epistaxis (principal)
CPT/HCPCS: 99283